=== PATIENT | female | born 1950 | race Caucasian/White ===

== ENCOUNTER → 2017-10-04 10:11 | Outpatient (REF) | payer OTHER, SELFPAY ==
--- NOTE | 2017-10-04 09:00 | PAPFT_PTH ---
PATIENT: Shereen Medley LOC: [facility] U#:[id number] AGE/SX: 74/F ROOM: RE10/04/[address]: DEBI Leal : 1950 BED: DIS: SPEC #: [id number] RECD: 10/04/17 12:46 STATUS: DOUGLAS JIMENEZ #: [id number] MARLENY: 10/04/17 09:[address]: Martha Mcintosh DEPT: [facility] Cytology RECD BY: aKrina Savage ENTERED: 10/04/17 12:46 SP TYPE: PAPFT OTHR DR: Balwinder Cruz Tissues: 1 - CX/ENDOCX FOR PAP SMEARS Procedures: PAP THIN PREP/[facility]VM Screening Comments: [id number]
== END ==
LOC: LBN 10:11
PROVIDERS: PCP Specialist/Technologist Athletic Trainer; Visit Provider Nurse Practitioner Family
DX: Z12.4 Encounter for screening for malignant neoplasm of cervix (principal)
CPT/HCPCS: 88142

== ENCOUNTER 2017-10-19 09:30 | Outpatient (RCR) | payer OTHER, SELFPAY ==
--- NOTE | 2017-10-05 15:28 | PTTR_ITS ---
DATE: 10/05/17 SUBJECTIVE: Shereen states that her hip is feeling much better. She went grocery shopping the other day and didn't experience any pain. She states that her daughter is coming up next week, and she's looking forward to being able to walk with her now that she's feeling better. She also plans to go shopping for sneakers when her daughter gets here. Compliant with HEP: x Yes No OBJECTIVE: Manual therapy: (33502r1): Patient received manual stretching to right HS, piriformis and single knee to chest stretching. She received DTM to the posterior hip musculature, with TrP release to the gluteals, and CFM to the gluteal tendons. Therapeutic procedures (65596m6). * x HEP review: * x Provided skilled instruction in proper exercise performance: Added pelvic tilts and mini squats, with consistent cues and tactile feedback. She was provided with handouts for home completion. * x Provided skilled manual cues to facilitate proper muscle recruitment and/ or movement pattern: Direct treatment time: 30 minutes Total treatment time: 30 minutes
--- NOTE | 2017-10-19 09:30 | PTDS_ITS ---
Date: October 19, 2017 Referring: SINGH [place] Diagnosis: Glut pain PT Dx: Gluteal tendinitis R Treatment dates 09/27/17 to 10/19/17 Subjective: History of Present Illness: Shereen states that her hip pain has almost entirely resolved. States she keeps waiting for the pain to return, although it doesn't seem to. She did have one day where she felt some stiffness in the back of her hip. She was able to do her exercises after which, her symptoms were completely resolved. She states she has been going for walks with her daughter and when out and purchased some more supportive shoes, which seems to be making a great deal of difference. She is now able to get out of bed without discomfort and stand for as long as she would like without onset of pain. Pain Ratin/10 Standardized Measures: LEFS which shows a 21% deficit. Objective: Posture: Standing-the patient continues to demonstrate posterior pelvic tilt. She is in supportive [employer] sneakers. Continues to demonstrate mild patella winking, although improved over previous visit. No trunk flexion is noted in static standing. Gait: Non-antalgic Palpation: Grossly non-tender throughout the LE's. ROM: Hip ROM is full and painfree. Trunk motion is full and painfree. Strength: Hip flexion is 5/5 bilaterally although with poor core stability with requirement of UE support. Quad strength is 5/5 bilaterally, hamstrings are 4+/5 bilaterally. IR is 5/5 bilaterally, ER 5/5 bilaterally. Ankle dorsiflexion 5/5 bilaterally. Glut med was assessed on the R only, found to be 4/5. Treatment: Today's session consisted of review of HEP. Progress pelvic tilts for 10 second hold for completion, otherwise patient demonstrates excellent technique throughout. Therapeutic Procedure [id number] Treatment Time: 20 mins Assessment: Patient is a 67 year old female who has been seen for 3 PT sessions to address gluteal tendinitis. She has experienced full resolution of symptoms and has now resumed all normal day to day activity. She is quite encouraged by her pain reduction and has been working on independently progressing a walking program. She also has demonstrated excellent compliance with her HEP, which I have strongly encouraged her to continue on fdc. She is transitioning to more supportive footwear, which I anticipate will make a great deal of difference for her in fdc as well. We have decided to defer orthotic insert as patient is managing so well in her new sneakers. At this point she is appropriate to discharge to [facility] as all rehab goals have been met. G-Codes: Patient demonstrates improvements in mobility: walking moving around with discharge status of [id number], based on projected goal status of GP-CI- G8979. Although patient demonstrated 21% deficit on LEFS, she has met all of her goals and complete resolution of symptoms. ST: Reduce frequency and severity of pain by 50% by self report (VAS less than 4 /10 at worse) MET. 2: Patient able to grocery shop without pain. (MET) LT: Fully independent self management program with intermediate card tender strengthening. (MET ) 2: Address biomechanical deficits with orthotic inserts (Deferred for time being due to well management symptoms in supportive sneakers.) 3: Patient able to complete work duties without pain pain. (MET) Plan: Discharge to home exercise program. Patient understands to contact me with any questions or concerns in the future. SS/dl *Balwinder, please sign this discharge summary and return to PT if you are in agreement. cc: Balwinder Cruz, PAC
== END 2017-11-02 23:59 | disposition home or self-care (01) ==
LOC: PT 09:30
PROVIDERS: PCP Specialist/Technologist Athletic Trainer; Referring Provider Specialist/Technologist Athletic Trainer; Visit Provider Specialist/Technologist Athletic Trainer
DX: M76.01 Gluteal tendinitis, right hip (principal)
CPT/HCPCS: 97110; 97140

== ENCOUNTER 2018-03-18 21:02 | Outpatient (REF) | payer OTHER, SELFPAY ==
[2018-03-18 22:52] LABS: Anion Gap 10.5 mmol/L (3-11); BUN 20 mg/dL (7-18); CO2 25.5 mmol/L (21.0-32.0); CREATININE 0.95 mg/dL (0.55-1.02); Calcium 10.4 mg/dL (8.5-10.1); Chloride 103 mmol/L (98-107); Cholesterol 171 mg/dL (50-200); Glucose 103 mg/dL (70-100); HDL Cholesterol 34 mg/dL (40-60); LDL CHOLESTEROL 110 mg/dL (<100); Potassium 4.8 mmol/L (3.5-5.1); Sodium 139 mmol/L (136-145); Triglyceride 225 mg/dL (30-150)
== END 2018-03-18 21:22 ==
LOC: NCHCN 21:02
PROVIDERS: PCP Specialist/Technologist Athletic Trainer; Visit Provider Specialist/Technologist Athletic Trainer
DX: E78.1 Pure hyperglyceridemia (principal); F17.200 Nicotine dependence, unspecified, uncomplicated; I10 Essential (primary) hypertension
CPT/HCPCS: 80048; 80061; 83721

== ENCOUNTER 2018-03-26 01:08 | Outpatient (CLI) | payer OTHER, SELFPAY ==
--- NOTE | 2018-03-26 08:48 | DI.MAMMO_ITS ---
SYMPTOMS/DIAGNOSIS: SCREENING, [facility] ADULT, Z00.00 MAMMOGRAMS: Mammograms were interpreted according to the usual protocol including computer analysis with CAD system, tomosynthesis and C view imaging. Comparison is with the prior examinations. There is again seen a large mole on the left breast. No suspicious masses or microcalcifications are seen. The skin and axillae are unremarkable. Asymmetric breast tissue at the upper inner quadrant of the right breast appears stable. IMPRESSION: No evidence for malignancy. Yearly mammography is recommended. Category 2, breast density A. MQSA ASSESSMENT OF FINDINGS: Negative with benign findings. Category 2. Patient will receive a letter notifying them of these results. BI-RAD category A. The breasts are almost entirely fatty.
== END 2018-03-26 01:28 ==
PROVIDERS: PCP Specialist/Technologist Athletic Trainer; Visit Provider Specialist/Technologist Athletic Trainer
DX: Z12.31 Encounter for screening mammogram for malignant neoplasm of breast (principal)
CPT/HCPCS: 77063; 77067

== ENCOUNTER → 2018-09-09 09:01 | Outpatient (BNVA) | payer OTHER, SELFPAY | PROVIDERS: PCP Specialist/Technologist Athletic Trainer; Visit Provider Urology | DX: N20.0 Calculus of kidney (principal) | CPT/HCPCS: 99213 ==

== ENCOUNTER 2018-09-12 14:11 | Outpatient (REF) | payer OTHER, SELFPAY ==
[2018-09-12 21:25] LABS: Anion Gap 13.6 mmol/L (3-11); BUN 20 mg/dL (7-18); CO2 23.4 mmol/L (21.0-32.0); CREATININE 0.88 mg/dL (0.55-1.02); Calcium 10.5 mg/dL (8.5-10.1); Chloride 101 mmol/L (98-107); Glucose 94 mg/dL (70-100); Potassium 4.6 mmol/L (3.5-5.1); Sodium 138 mmol/L (136-145)
== END 2018-09-12 14:31 ==
LOC: NCHCN 14:11
PROVIDERS: PCP Family Medicine; Visit Provider Specialist/Technologist Athletic Trainer
DX: I10 Essential (primary) hypertension (principal)
CPT/HCPCS: 80048

== ENCOUNTER 2018-09-23 00:39 | Outpatient (CLI) | payer OTHER, SELFPAY ==
--- NOTE | 2018-09-23 08:15 | DI.CTLCSR_ITS ---
SYMPTOM/DIAGNOSIS: TOBACCO SMOKER F17.20, CURRENT CT CHEST LUNG CANCER SCREENING. CT scan of the chest was performed according to the lung cancer screening protocol. Comparison examinations are 02/22/17 and 09/25/17. There is atherosclerosis of the thoracic aorta. No aneurysmal dilatation is present. Heart size is within normal limits. No significant pericardial effusion seen. Mild coronary artery calcification is present. No significant thoracic adenopathy, pleural effusion or pneumothorax is identified. The visualized thyroid gland is stable. Upper abdominal images show the patient is status post cholecystectomy. There is a nonobstructing 3 mm stone in the superior pole of the left kidney. The triangular shaped 6 mm pulmonary nodule associated with the superior aspect of the right major fissure and right minor fissure are stable. These likely reflect intrapulmonary lymph nodes. No noncalcified pulmonary nodules are seen. No infiltrates are present. The tracheobronchial tree is unremarkable. Degenerative flow and osteophytes are seen in the thoracic spine consistent with DISH. IMPRESSION: Stable pulmonary nodules, Category 2, annual screening with low dose CT in 12 months is recommended. Lung-RAD Category: Lung RADS Category 2- Benign Appearance/Behavior
== END 2018-09-23 00:59 ==
PROVIDERS: PCP Family Medicine; Visit Provider Specialist/Technologist Athletic Trainer
DX: Z12.2 Encounter for screening for malignant neoplasm of respiratory organs (principal); F17.200 Nicotine dependence, unspecified, uncomplicated; R91.8 Other nonspecific abnormal finding of lung field
CPT/HCPCS: G0297

== ENCOUNTER 2018-09-27 08:42 | Outpatient (CLI) | payer OTHER, SELFPAY ==
[2018-09-30 12:32] LABS: Parathyroid Hormone,Intact 40 pg/ml (19-88)
== END 2018-09-27 09:02 ==
PROVIDERS: PCP Family Medicine; Visit Provider Specialist/Technologist Athletic Trainer
DX: E83.52 Hypercalcemia (principal)
CPT/HCPCS: 36415; 82306; 83970; 84443

== ENCOUNTER 2019-02-27 10:15 | Outpatient (REF) | payer OTHER, SELFPAY ==
[2019-02-27 20:57] LABS: HCT 45.2 % (36.0-46.0); Mean Corp. HGB Concentration 33.2 g/dL (32.0-36.0); Mean Corpuscular Hemoglobin 31.3 pg (27.0-33.0); Mean Corpuscular Volume 94.4 fL (80-95); Mean Platelet Volume 10.7 fL (8.0-11.0); Platelet Count 309 x1000/uL (130-400); RBC 4.79 m/cumm (4.00-5.20); RBC Distribution Width 13.8 % (11.7-14.6)
[2019-02-27 21:07] LABS: ALT 22 U/L (14-59); AST 11 U/L (15-37); Albumin 3.8 g/dL (3.4-5.0); Alkaline Phosphatase 80 U/L (46-116); Anion Gap 11.5 mmol/L (3-11); BUN 19 mg/dL (7-18); Bilirubin, Total 0.4 mg/dL (0.2-1.0); CO2 24.5 mmol/L (21.0-32.0); CREATININE 1.02 mg/dL (0.55-1.02); Calcium 9.9 mg/dL (8.5-10.1); Chloride 104 mmol/L (98-107); Estimated GFR 53.89 (mL/min/1.73m2); Glucose 90 mg/dL (74-106); Magnesium 1.9 mg/dL (1.8-2.4); Potassium 4.6 mmol/L (3.5-5.1); Sodium 140 mmol/L (136-145); Total Protein 7.4 g/dL (6.4-8.2)
[2019-03-03 11:08] LABS: Hepatitis C Ab w Rflx HCV PCR Negative (Negative)
== END 2019-02-27 10:35 ==
LOC: NCHCN 10:15
PROVIDERS: PCP Family Medicine; Visit Provider Specialist/Technologist Athletic Trainer
DX: E83.52 Hypercalcemia (principal); R73.03 Prediabetes; I10 Essential (primary) hypertension; Z11.59 Encounter for screening for other viral diseases
CPT/HCPCS: 80053; 85027; 86803; 83735

== ENCOUNTER → 2019-09-09 08:11 | Outpatient (BNVA) | payer OTHER, SELFPAY | PROVIDERS: PCP Family Medicine; Referring Provider Family Medicine; Visit Provider Urology | DX: N20.0 Calculus of kidney (principal) | CPT/HCPCS: 99213 ==

== ENCOUNTER 2019-11-24 09:48 | Outpatient (REF) | payer OTHER, SELFPAY ==
[2019-11-24 19:48] LABS: HCT 46.2 % (36.0-46.0); HGB 14.7 g/dL (11.2-15.7); MCH 31.5 pg (27.0-33.0); MCHC 31.8 % (32.0-36.0); MCV 99.1 fL (80-95); MPV 10.8 fL (8.0-11.0); Platelet Count 287 10^3/uL (130-400); RBC 4.66 10^6/uL (3.93-5.22); RDW 13.4 % (11.7-14.6); RDW-SD 49.3 fL; WBC 8.26 10^3/uL (4.4-10.8)
[2019-11-24 19:54] LABS: Anion Gap 8.9 mmol/L (3-11); BUN 18 mg/dL (7-18); CO2 25.1 mmol/L (21.0-32.0); CREATININE 1.11 mg/dL (0.55-1.02); Calcium 9.9 mg/dL (8.5-10.1); Calculated LDL 76 mg/dL (<100); Chloride 108 mmol/L (98-107); Cholesterol 176 mg/dL (<200); Estimated GFR 48.74 (mL/min/1.73m2); Glucose 111 mg/dL (74-106); HDL Cholesterol 32 mg/dL (40-60); Potassium 4.4 mmol/L (3.5-5.1); Sodium 142 mmol/L (136-145); Triglyceride 343 mg/dL (<150)
[2019-11-24 20:45] LABS: Hemoglobin A1C 6.1 % (<5.7)
[2019-12-01 12:08] LABS: Campylobacter PCR Negative (Negative); Salmonella PCR Negative (Negative); Shiga Toxin PCR Negative (Negative); Shigella/Enteroinvasive Ecoli Negative (Negative)
== END 2019-11-24 10:08 ==
LOC: NCHCN 09:48
PROVIDERS: PCP Family Medicine; Visit Provider Nurse Practitioner Family
DX: R73.03 Prediabetes (principal); L98.9 Disorder of the skin and subcutaneous tissue, unspecified; E78.1 Pure hyperglyceridemia; I10 Essential (primary) hypertension; R19.7 Diarrhea, unspecified
CPT/HCPCS: 80048; 80061; 85027; 87329; 87505; 83036; 83630; 87177

== ENCOUNTER 2019-11-26 01:26 | Outpatient (CLI) | payer OTHER, SELFPAY ==
--- NOTE | 2019-11-26 | DI.CTLCSR_ITS ---
EXAM: CT CHEST LUNG CANCER SCREEN CLINICAL HISTORY: SCREENING FOR LUNG CA,CURRENT SMOKER,F17.200, LUNG NODULE, R91.8 TECHNIQUE: Imaging Protocol: Axial computed tomography images with coronal and sagittal reformatted images were created and reviewed COMPARISON: CT CT CHEST LUNG CANCER SCREEN from 09/23/2018 FINDINGS: Tracheobronchial tree: Patent where visualized. Mediastinum and Violeta: No dominant adenopathy or fluid collection. Pulmonary parenchyma: No consolidation or dominant measurable mass. No architectural distortion. Lung Nodules: The 2 triangular nodules associated with the superior aspect of the right major fissure and the right minor fissure are stable. There is again seen a calcified granuloma in the right lowe r lobe. No new pulmonary nodules are appreciated. Pleura: No effusion or pneumothorax. Heart: The heart is not dilated. Mild coronary artery calcification. No significant pericardial effus ion. Aorta: Thoracic aorta non-dilated.Atherosclerosis. Upper abdomen: Status post cholecystectomy. Bones: Degenerative changes. Soft Tissues: Unremarkable. IMPRESSION: Stable pulmonary nodules likely reflecting parenchymal lymph nodes. No new pulmonary nodules. Lung RADS Cat 2 - Benign Appearance / Behavior: Nodules with a very low likelihood of becoming a clin ically active cancer due to size or lack of growth Lung-RADS 1.0 CATEGORIES: Category 0 - Prior chest CT exam(s) being located for comparison. Category 1 - Annual screening in 12 months. No nodules or definitely benign nodules. Category 2 - Annual screening in 12 months. Benign appearance. Nodules with low likelihood of becomin g active cancer. Category 3 - 6-month follow-up. Probably benign. Short-term follow-up suggested. Nodules with low lik elihood of becoming active cancer. Category 4A - 3-month follow-up and CT/PET if >8 mm in size. Suspicious finding. Findings which requi re additional testing. Category 4B - Findings which require additional testing and tissue sampling. Suspicious finding. C Added to Any of the Above - History of prior lung cancer screening. S Added to Any of the Above - Significant unexpected other finding. RADIATION DOSE DELIVERED: 72.06mGy.cm Total DLP DATA REPOSITORY: All CT scans at this facility are submitted to the National Radiology Data Registry (NRDR) Dose Index Registry (DIR) with the [employer] (ACR). RADIATION OPTIMIZATION: All CT scans at this facility use at least one of these dose optimization te chniques: automated exposure control; mA and/or kV adjustment per patient size (includes targeted exa ms where dose is matched to clinical indication); or iterative reconstruction.
== END 2019-11-26 01:46 ==
PROVIDERS: PCP Family Medicine; Visit Provider Nurse Practitioner Family
DX: F17.210 Nicotine dependence, cigarettes, uncomplicated (principal); R91.8 Other nonspecific abnormal finding of lung field
CPT/HCPCS: G0297

== ENCOUNTER 2020-07-12 13:36 | Outpatient (REF) | payer OTHER, SELFPAY ==
[2020-07-12 15:39] LABS: Hemoglobin A1C 6.4 % (<5.7)
[2020-07-12 15:42] LABS: Anion Gap 11.4 mmol/L (3-11); BUN 20 mg/dL (7-18); CO2 23.6 mmol/L (21.0-32.0); CREATININE 1.1 mg/dL (0.55-1.02); Calcium 10.4 mg/dL (8.5-10.1); Chloride 105 mmol/L (98-107); Glucose 106 mg/dL (74-106); Potassium 5.2 mmol/L (3.5-5.1); Sodium 140 mmol/L (136-145)
== END 2020-07-12 13:37 | disposition home or self-care (01) ==
LOC: NCHCN 13:36
PROVIDERS: PCP Family Medicine; Visit Provider Nurse Practitioner Family
DX: R73.03 Prediabetes (principal); I10 Essential (primary) hypertension
CPT/HCPCS: 80048; 83036

== ENCOUNTER 2020-07-22 01:49 | Outpatient (CLI) | payer OTHER, SELFPAY ==
--- NOTE | 2020-07-22 08:28 | DI.RAD_ITS ---
Exam(s) XR HIP RT COMPLETE AP PELVIS EXAM: XR HIP RT COMPLETE AP PELVIS CLINICAL HISTORY: RT HIP PAIN, M25.551. TECHNIQUE: 2D digital imaging was performed. COMPARISON: No exams were available for comparison FINDINGS: There is no evidence of pelvic nor hip fracture. Additional views of the right hip reveal no joint s pace narrowing nor osteophytes. No osseous lesions in the hips and pelvic bones. IMPRESSION: DATA REPOSITORY: RADIATION DOSE DELIVERED:
== END 2020-07-22 02:09 ==
PROVIDERS: PCP Family Medicine; Visit Provider Nurse Practitioner Family
DX: M25.551 Pain in right hip (principal)
CPT/HCPCS: 73502

== ENCOUNTER 2020-08-25 00:54 | Outpatient (CLI) | payer OTHER, SELFPAY ==
--- NOTE | 2020-08-25 08:27 | DI.RAD_ITS ---
Exam(s) XR LUMBAR SPINE COMPLETE EXAM: XR LUMBAR SPINE COMPLETE CLINICAL HISTORY: RT HIP PAIN,M25.551. TECHNIQUE: 2D digital imaging was performed. COMPARISON: CR ABDOMEN FLAT PLATE from 09/07/2017 CR ABDOMEN FLAT PLATE from 09/07/2017 CR XR HIP RT COMPLETE AP PELVIS from 07/22/2020 FINDINGS: Five views of the lumbosacral spine reveal no evidence of compression fracture or listhesis nor pars defects. There is moderate disc space narrowing at each level and more prominent disc space narrowin g at L5-S1 level. Multilevel anterior osseous lipping is noted. Also multi level degenerative amor es in the facet joints. There is no scoliosis. No osseous lesions. Sacroiliac joints appear unchan ged from September 2017. Surgical clips from prior cholecystectomy incidentally noted. Vascular calcific ation in the distal abdominal aorta and iliac arteries noted. IMPRESSION: Multilevel chronic degenerative disc disease. Also multilevel facet arthropathy. DATA REPOSITORY: RADIATION DOSE DELIVERED:
--- NOTE | 2020-08-25 08:27 | DI.RAD_ITS ---
Exam(s) XR SACROILIAC JOINTS EXAM: XR SACROILIAC JOINTS CLINICAL HISTORY: RT HIP PAIN, AND SI PAIN,M25.551. TECHNIQUE: 2D digital imaging was performed. COMPARISON: CR ABDOMEN FLAT PLATE from 09/07/2017 CR ABDOMEN FLAT PLATE from 09/07/2017 FINDINGS: Sacroiliac joints appear age-appropriate. No obvious evidence of sacroiliitis or ankylosis. The tim earance of these joints is unchanged from abdominal pelvic plain film of September 07, 2017. Advanced disc space narrowing L5-S1 incidentally noted. Moderate disc space narrowing L4-5 noted. N o prominent narrowing of the visualized hip joint spaces. IMPRESSION: Age-appropriate sacroiliac joints. No evidence of obvious sacroiliitis. No ankylosis. Appearance is basically unchanged from September 2017. DATA REPOSITORY: RADIATION DOSE DELIVERED:
== END 2020-08-25 01:14 ==
PROVIDERS: PCP Family Medicine; Visit Provider Nurse Practitioner Family
DX: M16.11 Unilateral primary osteoarthritis, right hip; M53.3 Sacrococcygeal disorders, not elsewhere classified
CPT/HCPCS: 72110; 72202

== ENCOUNTER 2021-10-06 15:25 | Outpatient (REF) | payer MEDICARE, SELFPAY ==
[2021-10-06 15:49] LABS: Anion Gap 9.9 mmol/L (3-11); BUN 18 mg/dL (7-18); CO2 25.1 mmol/L (21.0-32.0); CREATININE 1.2 mg/dL (0.55-1.02); Calcium 9.8 mg/dL (8.5-10.1); Calculated LDL 61 mg/dL (<100); Chloride 106 mmol/L (98-107); Cholesterol 163 mg/dL (<200); Estimated GFR 44.29 (mL/min/1.73m2); Glucose 133 mg/dL (74-106); HDL Cholesterol 31 mg/dL (40-60); Potassium 4.7 mmol/L (3.5-5.1); Sodium 141 mmol/L (136-145); Triglyceride 357 mg/dL (<150)
[2021-10-06 16:04] LABS: Hemoglobin A1C 6.6 % (<5.7)
== END 2021-10-06 15:26 | disposition home or self-care (01) ==
LOC: NCHCN 15:25
PROVIDERS: PCP Family Medicine; Visit Provider Nurse Practitioner Family
DX: I10 Essential (primary) hypertension (principal); R73.03 Prediabetes
CPT/HCPCS: 80048; 80061; 83036

== ENCOUNTER → 2021-10-28 00:26 | Outpatient (CLI) | payer MEDICARE, SELFPAY ==
--- NOTE | 2021-10-28 | DI.DEXA_ITS ---
Exam(s) XR DEXA BONE DENSITY W/WO JUN EXAM: XR DEXA BONE DENSITY W/WO JUN CLINICAL HISTORY: SCREENING FOR OSTEOPOROSIS IN POSTMENOPAUSAL WOMAN,Z78.0 TECHNIQUE: Routine DEXA evaluation of the lumbar spine, hip, or forearm. COMPARISON: CR XR LUMBAR SPINE COMPLETE from 08/25/2020 FINDINGS: Performed on a Hologic unit. Lateral image: No compression fracture evident. Lumbar Spine total T-score: 3.5 Hip total T-score:2.2 Independent reading at the level of the femoral neck yields at T-score of 1.9. Forearm total T-score: 1.1 IMPRESSION: Bone mineral density measures in the normal range. Fracture risk is low. Note: Any spine fracture indicates 5x risk for subsequent spine fracture and 2x risk for subsequent h ip fracture. World Health Organization criteria for BMD interpretation classify patients: Normal...... T- Score at or above -1.0 Osteopenic... T- Score between -1.0 and -2.5 Osteoporosis... T-Score at or below -2.5
--- NOTE | 2021-10-28 | DI.MAMMO_ITS ---
Exam(s) MAMMO SCREENING EXAM: MAMMO SCREENING CLINICAL HISTORY: SCREENING, Z12.31. TECHNIQUE: Bilateral full field digital CC and MLO mammographic images were obtained with 3D tomosyn thesis and utilizing computer aided detection (CAD). COMPARISON: Prior mammograms were reviewed, the most recent being March 2018. FINDINGS: Fibroglandular tissue pattern is again noted fatty. Prominent skin mole on the left side is again no dell. Small microcalcification in the left breast located 5 cm in from the nipple on the CC view is unchang ed. There are no new spiculated masses nor malignant appearing microcalcification groups. Small nodular density in the right breast located 6 cm in from the nipple on the CC view is unchanged from prior studies. There is no significant architectural distortion nor skin thickening-retraction. IMPRESSION: No radiographic evidence of malignancy. Stable benign-appearing findings. BI-RADS Category 2 - Benign Findings Breast Density - Category A - Almost entirely fatty Breast density Category C or D implies that the patient has dense breast tissue. Dense breast tissue can make it harder to find cancer on a mammogram. Dense breast tissue is also associated with an incr eased risk of breast cancer. This information about the result of the mammogram report was provided to the patient to raise their awareness. Use this report when you speak with the patient about their risks for breast cancer, which includes their family history. At that time, you may recommend additional screening tests (Ultrasoun d or MRI) as these tests may add significant information. A negative radiographic report should not delay biopsy if a dominant or clinically suspicious mass is present. Up to ten percent of cancers are not identified on mammography. A negative report may reinforce clinical impression. Adenosis and dense breasts may obscure an underlying neoplasm. False positive reports average 6 to 10%. Patient will receive a letter notifying them of these results.
--- OUTSIDE RECORDS SUMMARY | 2021-10-28 00:27 | XMS_ITS | Encounter Summary ---
:1950 Author Organization [facility] Address [address] [place] [address] Care Team Providers Name Role Phone Unavailable Primary Care Provider Unavailable Encounter Details Date Type Department Care Team Description 09/03/2007 [facility] Hsu MD Converted Visit [place] conversion [address] ([place]) [address] [facility] [place] [phone] Social History Tobacco Use Types Packs/Day Years Used Date Never Assessed Sex Assigned at Date Recorded Not on file documented as of this encounter Plan of Treatment Not on filedocumented as of this encounter Procedures Procedure Name Priority Date/Time Associated Diagnosis Comme nts CYTOPATHOLOGY Routine 09/03/2007 0:00 EDT Results for this procedure are i n the results section . documented in this encounter Results CYTOPATHOLOGY (09/03/2007 0:00 EDT) Pathology Report: CYTOPATHOLOGY REPORT ? [facility] ? LAB Reports generated via Morphy interface contain original data; ? however they are lacking the format of the original report. ? Caution should be taken when reading/interpreting unformatted reports. ? Name: ? PAKO TEE ? Accession #: ? [id number] ? : ? 1950 (Age: 57) ??F ?Collect Date: ? 09/03/2007 ? Location: ? [facility] ? Receive Date: ? 09/03/2007 ? Provider: ?ARPIT WINTERSU L MD ? Copy to: ? Specimen/Source: ? ThinPrep Pap Test, Cervix/Endocervix, processed on Cytyc ThinPrep Imaging System, wit h manual evaluation ? Last Menstrual Period: ? 05/01/06 ? SPECIMEN ADEQUACY ? Satisfactory for Eval uation ? - transformation zone compon ent present ? GENERAL CATEGORIZATION ? Negative for Intraepi thelial Lesion or Malignancy ? Document reviewed and electr onically signed by: ? Raj Paul, CT( CP) ? Report Date: ??07/09/ 2008 11:13 ? End of Report ? Specimen Performing Organization Address City/State/ZIP Code Phon e Number [facility] [address] [place] [address] SERVICES [facility] [address] [place] [address] documented in this encounter Visit Diagnoses Not on filedocumented in this encounter
--- OUTSIDE RECORDS SUMMARY | 2021-10-28 00:27 | XMS_ITS | Encounter Summary ---
:1950 Author Organization [facility] Address [address] [place] [address] Care Team Providers Name Role Phone Unknown, Provider Primary Care Provider Encounter Details Date Type Department Care Team Description 02/02/2003 Results Only [facility] - Dennis Clarke MD conversion [address] [place] [phone] Social History Tobacco Use Types Packs/Day Years Used Date Never Assessed Sex Assigned at Date Recorded Not on file documented as of this encounter Plan of Treatment Not on filedocumented as of this encounter Procedures Procedure Name Priority Date/Time Associated Diagnosis Comme nts SURGICAL PATHOLOGY Routine 02/02/2003 0:00 EST Re sults for this procedure are i n the results section. documented in this encounter Results SURGICAL PATHOLOGY (02/02/2003 0:00 EST) Pathology Report: SURGICAL PATHOLOGY REPORT [facility] Reports generated via electronic interface contain luis a ginal data; LAB however they are lacking the format of the original re port. Caution should be taken when reading/interpreting unfo rmatted reports. Name: ? PAKO TEE ? Accession #: ? [id number] ? : ? 1950 (Age: 52) ??F ? Collect Date: ? 02/02/2003 ? Location: ? [facility] ? Receive Date: ? 003 ? Provider: DENNIS VILLARREAL MD Copy to: SHAHRAM CHOI MD ? Final Pathologic Diagnosis: ? Endometrium, curettage: 1. ?Fragments of proliferat michael endometrium with tubal metaplasia. 2. ?Fragments of endocervical tissue with squamous metaplasia. 3. ?No hyperplasia identified. ??See comm ent. Comment: ? Outside Sales Executive sections have been reviewed at i ntradepartmental consultation conference. ??(Dr. Whaley)/[facility] Document reviewed and electronically signed by: POOL WHALEY MD Report ??Date: 02/04/2003 15:48 By the signature above, the attending physician certif ies that he/she has personally conducted a gross and/or microscopic examin ation of the described specimens and rendered or confirmed the above diagnosi s. Specimen(s) Received: ? Endometrial curettage Clinical History: ? Menometrorrhagia, cycled on progesterone Gross Description: ? Received in formalin labeled Call and endometrial curettage are 1.0 x 0.6 x 0.3 cm of multiple red-brown hemorrhagic soft ti ssue fragments. ??The specimen is entirely submitted in one cassette. ??(Payton Hernandez)/[facility] End of Report Specimen Performing Organization Address City/State/ZIP Code Phon e Number [facility] [address] [place] [address] SERVICES [facility] [address] [place] [address] documented in this encounter Visit Diagnoses Not on filedocumented in this encounter Care Teams Sandstone Inspector Repairer Relationship Specialty Start Date End Date Unknown, Provider, PCP - General 09/09/09 09/23/09 documented as of this encounter
--- OUTSIDE RECORDS SUMMARY | 2021-10-28 00:27 | XMS_ITS | Encounter Summary ---
:1950 Author Organization [facility] Address [address] [place] [address] Care Team Providers Name Role Phone Unavailable Primary Care Provider Unavailable Encounter Details Date Type Department Care Team Description 07/15/2002 Results Only [facility] - Mignon Pyle NP conversion [facility] [address] [place] [address] [place], [place] [id number] [phone] Social History Tobacco Use Types Packs/Day Years Used Date Never Assessed Sex Assigned at Date Recorded Not on file documented as of this encounter Plan of Treatment Not on filedocumented as of this encounter Procedures Procedure Name Priority Date/Time Associated Diagnosis Comme nts CYTOPATHOLOGY Routine 07/15/2002 0:00 EDT Results for this procedure are i n the results section . documented in this encounter Results CYTOPATHOLOGY (07/15/2002 0:00 EDT) Pathology Report: CYTOPATHOLOGY REPORT [facility] Reports generated via electronic interface contain luis a ginal data; however they are lacking the format of the original re port. Caution should be taken when reading/interpreting unfo rmatted reports. Name: ? SHEREEN TEE ? Accession #: ? [id number] : ? 1950 (Age: 52) ??F ?Collect Date: ? 05/1 05/2002 Location: ? [facility] ? Receive Date : ? 07/17/2002 Provider: ?MIGNON WRIGHT TAX RECORD CLERK Copy to: ? Specimen/Source: ?ThinPrep Pap Test, Cervix/ Endocervix Last Menstrual Period: ? 06/13/02 Hormonal/Contraceptive Status: ? Yes ? SPECIMEN ADEQUACY ? Satisfactory for Evaluation - transformation zone component present - scant squamous epithelial component secondary to exc essive blood GENERAL CATEGORIZATION ? Other, see interpretation INTERPRETATION ? Endometrial cells present in a woman equal to o r greater than age 40. Negative for Intraepithelial Lesion or Malignancy. ? COMMENT ? Benign appearing endometrial cells on Pap tests are usually a normal finding in women with regular menstrual cycles, especi ally if the Pap was collected during the first h césar of the menstrual cycle. ??There is data showing that endometrial cells on Pap tests may be associated with endometrial/uterine abnormalities in post menopausal women o r in premenopausal women with abnormal bleeding. ??There is limited data on the significance of benign endometrial cells in post menopausal women on HRT. ??Clinical correlatio n is recommended. Note: ?? The Pap test is not an accurate test for the screening of endometrial lesions and should not be used as a follow up in patie nts with clinical suspicion of endometrial pathology. ? Document reviewed and electronically signed by: ? ZAKIYA TEMPLETON MD ? Report Date: ??07/25/2002 15:43 End of Report Specimen Performing Organization Address City/State/ZIP Code Phon e Number [facility] [address] [place] [address] SERVICES [facility] [address] [place] [address] documented in this encounter Visit Diagnoses Not on filedocumented in this encounter
--- OUTSIDE RECORDS SUMMARY | 2021-10-28 00:27 | XMS_ITS | Encounter Summary ---
:1950 Author Organization [facility] Address [address] [place] [address] Care Team Providers Name Role Phone Safia Leal MD Primary Care Provider Encounter Details Date Type Department Care Team Description 02/28/2019 Lab Requisition [facility] Unknown, Provider, Pathology & Laboratory [facility] [address] [facility] [place], [place] [address] Social History Tobacco Use Types Packs/Day Years Used Date Never Assessed Sex Assigned at Date Recorded Not on file documented as of this encounter Plan of Treatment Not on filedocumented as of this encounter Procedures Procedure Name Priority Date/Time Associated Diagnosis Comme nts HEPATITIS C AB W Routine 02/27/2019 9:55 EST Resu lts for this REFLEX TO HCV RNA procedure are in BY PCR the results section. documented in this encounter Results HEPATITIS C AB W REFLEX TO HCV RNA BY PCR (02/27/2019 9:55 EST) Pathologist Sig nature Hep C Antibody Negative Negative [facility] Specimen Blood - Venous blood (substance) Performing Organization Address City/State/ZIP Code Phon e Number [facility] [address] [place] [address] SERVICES documented in this encounter Visit Diagnoses Not on filedocumented in this encounter Care Teams Journeyman Patternmaker Relationship Specialty Start Date End Date Safia Leal MD PCP - General 09/24/09 [address] [place], [place] [id number] documented as of this encounter
--- OUTSIDE RECORDS SUMMARY | 2021-10-28 00:27 | XMS_ITS | Encounter Summary ---
:1950 Author Organization [facility] Address [address] [place] [address] Care Team Providers Name Role Phone Unavailable Primary Care Provider Unavailable Encounter Details Date Type Department Care Team Description 09/07/2008 Orders Only [facility] Barney Mcintosh, ELECTRIC FAN ASSEMBLER Laboratory Services - [address] [place], [place] [address] [facility] [address] [place] [address] [phone] Social History Tobacco Use Types Packs/Day Years Used Date Never Assessed Sex Assigned at Date Recorded Not on file documented as of this encounter Plan of Treatment Not on filedocumented as of this encounter Procedures Procedure Name Priority Date/Time Associated Diagnosis Comme nts CYTOPATHOLOGY Routine 09/07/2008 0:00 EDT Results for this procedure are i n the results section . documented in this encounter Results CYTOPATHOLOGY (09/07/2008 0:00 EDT) Pathology Report: CYTOPATHOLOGY REPORT ? [facility] ? LAB Reports generated via [employer] interface contain original data; ? however they are lacking the format of the original report. ? Caution should be taken when reading/interpreting unformatted reports. ? Name: ? CALL, PAKO ? Accession #: ? [id number] ? : ? 1950 (Age: 58) ??F ?Collect Date: ? 09/07/2008 ? Location: ? [facility] ? Receive Date: ? 09/07/2008 ? Provider: ?MAURICIO GERMAN OOD ELECTRIC FAN ASSEMBLER ? Copy to: ? Specimen/Source: ? Pap Test, Cervix/Endocervix, ThinPrep Imaging System ? with manual evaluation ? Last Menstrual Period: ? 05/01/06 ? Other: ? HPVA - HPV testing requested if ASC-US on the current ThinPrep Pap test. ? SPECIMEN ADEQUACY ? Satisfactory for Eval uation ? - transformation zone compon ent present ? GENERAL CATEGORIZATION ? Negative for Intraepi thelial Lesion or Malignancy ? Document reviewed and electr onically signed by: ? Raj Shireenler, CT( CP) ? Report Date: ??07/10/ 2009 16:03 ? End of Report ? Specimen Performing Organization Address City/State/[facility] Code Phon e Number [facility] [address] [place] [address] SERVICES [facility] [address] [place] [address] documented in this encounter Visit Diagnoses Not on filedocumented in this encounter
--- OUTSIDE RECORDS SUMMARY | 2021-10-28 00:27 | XMS_ITS | Encounter Summary ---
:1950 Author Organization [facility] Address [address] [place] [address] Care Team Providers Name Role Phone Safia Leal MD Primary Care Provider Unknown, Provider Primary Care Provider Encounter Details Date Type Department Care Team Description 08/22/2004 Results Only [facility] - Dennis Clarke MD conversion [address] [place] [address] Social History Tobacco Use Types Packs/Day Years Used Date Never Assessed Sex Assigned at Date Recorded Not on file documented as of this encounter Plan of Treatment Not on filedocumented as of this encounter Procedures Procedure Name Priority Date/Time Associated Diagnosis Comme nts CYTOPATHOLOGY Routine 08/22/2004 0:00 EDT Results for this procedure are i n the results section . documented in this encounter Results CYTOPATHOLOGY (08/22/2004 0:00 EDT) Pathology Report: CYTOPATHOLOGY REPORT [facility] Reports generated via electronic interface contain luis a ginal data; however they are lacking the format of the original re port. Caution should be taken when reading/interpreting unfo rmatted reports. Name: ? PAKO TEE ? Accession #: ? [id number] : ? 1950 (Age: 54) ??F ?Collect Date: ? 08/04 Location: ? [facility] ? Receive Date : ? 08/24/2004 Provider: ?DENNIS VILLARREAL MD Copy to: ? Specimen/Source: ?ThinPrep Pap Test, Cervix/ Endocervix Last Menstrual Period: ? 07/09/04 Hormonal/Contraceptive Status: ? Progesterone Other: ? HPVA - HPV testing requested if ASC-US on the current ThinPrep Pap test. ? SPECIMEN ADEQUACY ? Satisfactory for Evaluation - transformation zone component present GENERAL CATEGORIZATION ? Negative for Intraepithelial Lesion or Malignan cy ? Document reviewed and electronically signed by: ? Mignon Castaneda, [facility](ASCP) ? Report Date: ??08/30/2004 10:14 End of Report Specimen Performing Organization Address City/State/ZIP Code Phon e Number [facility] [address] [place] [address] SERVICES [facility] [address] [place] [address] documented in this encounter Visit Diagnoses Not on filedocumented in this encounter Care Teams Assistant Center Director Relationship Specialty Start Date End Date Safia Leal MD PCP - General 09/24/09 [address] [place] [address] Ama, MD Barbie PCP - General 09/09/09 09/23/09 documented as of this encounter
--- OUTSIDE RECORDS SUMMARY | 2021-10-28 00:27 | XMS_ITS | Encounter Summary ---
:[address] [facility] Address [address] [place] [address] Care Team Providers Name Role Phone Unavailable Primary Care Provider Unavailable Encounter Details Date Type Department Care Team Description 07/12/2001 Results Only [facility] - Safia Veronica MD conversion [address] [facility] [address] [place] [address] [place] [address] [phone] Social History Tobacco Use Types Packs/Day Years Used Date Never Assessed Sex Assigned at Date Recorded Not on file documented as of this encounter Plan of Treatment Not on filedocumented as of this encounter Procedures Procedure Name Priority Date/Time Associated Diagnosis Comme nts CYTOPATHOLOGY Routine 07/12/2001 0:00 EDT Results for this procedure are i n the results section . documented in this encounter Results CYTOPATHOLOGY (07/12/2001 0:00 EDT) Pathology Report: CYTOPATHOLOGY REPORT [facility] Reports generated via electronic interface contain luis a ginal data; however they are lacking the format of the original re port. Caution should be taken when reading/interpreting unfo rmatted reports. Name: ? PAKO TEE ? Accession #: ? [id number] : ? 1950 (Age: 51) ??F ?Collect Date: ? 07/03 Location: ? [facility] ? Receive Date : ? 07/17/2001 Provider: ?SAFIA CHOI MD Copy to: ? Specimen/Source: ?ThinPrep Pap Test, Cervix/ Endocervix Last Menstrual Period: ? 06/16/01 Hormonal/Contraceptive Status: ? Progesterone ? SPECIMEN ADEQUACY ? Satisfactory for Evaluation - transformation zone component present GENERAL CATEGORIZATION ? Negative for Intraepithelial Lesion or Malignan cy ? Document reviewed and electronically signed by: ? Mignon Castaneda, SCT(ASCP) ? Report Date: ??07/19/2001 16:16 End of Report Specimen Performing Organization Address City/State/ZIP Code Phon e Number [facility] [address] [place] [address] SERVICES [facility] [address] [place] [phone] documented in this encounter Visit Diagnoses Not on filedocumented in this encounter
--- OUTSIDE RECORDS SUMMARY | 2021-10-28 00:27 | XMS_ITS | Encounter Summary ---
:1950 Author Organization [facility] Address [address] [place] [address] Care Team Providers Name Role Phone Safia Leal MD Primary Care Provider Encounter Details Date Type Department Care Team Description 09/10/2012 Results Only [facility] Barney Mcintosh, [facility] Laboratory Services - [address] [place], [place] [address] [facility] [address] [place] [address] [phone] Social History Tobacco Use Types Packs/Day Years Used Date Never Assessed Sex Assigned at Date Recorded Not on file documented as of this encounter Plan of Treatment Not on filedocumented as of this encounter Procedures Procedure Name Priority Date/Time Associated Diagnosis Comme nts PAP TEST- RESULT Routine 09/10/2012 0:00 EDT Resu lts for this ONLY procedure are i n the results section. documented in this encounter Results PAP TEST- RESULT ONLY (09/10/2012 0:00 EDT) Pathology Report: CYTOPATHOLOGY REPORT [facility] Reports generated via electronic interface contain luis a ginal data; however they are lacking the format of the original re port. Caution should be taken when reading/interpreting unfo rmatted reports. Name: ? PAKO TEE ? Accession #: ? [id number] ? : ? 1950 (Age: 62) ??F ?Collect Da te: ? 09/10/2012 ? Location: ? [facility] ? Receive Date: ? 013 ? Provider: MAURICIO MCINTOSH WILDLIFE CONSERVATION PROFESSOR Copy to: SAFIA LEAL MD ? Final Report SPECIMEN ADEQUACY ? Satisfactory for Evaluation - transformation zone component present GENERAL CATEGORIZATION ? Negative for Intraepithelial Lesion or Malignan cy ?? Last Menstrual Period: 2005 Other: Additional clinical information: last pap 0, negative with -HPV Specimen/Source: ??Pap Test, Cervix/Endocervix, ThinPr ep Imaging System with manual evaluation Document reviewed and electronically signed by: ? RAMESH Sapp(ASCP) ? Report ??Date: 09/16/2012 13:57 HPV with Pap Test ? Date Ordered: ? 09/16/2012 ? Status: ?? Signed Out ?Date Complete: ? 09/18/2012 ? By: ??S ystem Interface ? Date Reported: ? 09/18/2012 ? Interpretation RESULT: Negative for HPV. No E6 or E7 mRNA is detected from HPV types 16,18,31,3 3,35, 39,45,51,52,56,58,59,66, and 68 by admissions officer media dell amplification. Comments Document reviewed and electronically signed by: ? System Interface ? Report date: 09/18/2012 By the signature above, the attending physician certif ies that he/she has personally conducted a gross and/or microscopic examin ation of the described specimens and rendered or confirmed the above diagnosi s. End of Report Specimen Performing Organization Address City/State/ZIP Code Phon e Number [facility] [address] [place] [address] SERVICES [facility] [address] [place] [address] documented in this encounter Visit Diagnoses Not on filedocumented in this encounter Care Teams Lining Presser Relationship Specialty Start Date End Date Safia Leal MD PCP - General 09/24/09 [address] [place] [address] documented as of this encounter
--- OUTSIDE RECORDS SUMMARY | 2021-10-28 00:27 | XMS_ITS | Encounter Summary ---
:1950 Author Organization [facility] Address [address] [place] [address] Care Team Providers Name Role Phone Safia Leal MD Primary Care Provider Unknown, Provider Primary Care Provider Encounter Details Date Type Department Care Team Description 03/22/2006 Results Only [facility] - John Francisco, DO conversion [address] [facility] [address] [place], [place] [address] [place] [id number] [phone] Social History Tobacco Use Types Packs/Day Years Used Date Never Assessed Sex Assigned at Date Recorded Not on file documented as of this encounter Plan of Treatment Not on filedocumented as of this encounter Procedures Procedure Name Priority Date/Time Associated Diagnosis Comme nts SURGICAL PATHOLOGY Routine 03/22/2006 0:00 EST Re sults for this procedure are i n the results section. documented in this encounter Results SURGICAL PATHOLOGY (03/22/2006 0:00 EST) Pathology Report: SURGICAL PATHOLOGY REPORT [facility] Reports generated via electronic interface contain luis a ginal data; LAB however they are lacking the format of the original re port. Caution should be taken when reading/interpreting unfo rmatted reports. Name: ? PAKO TEE ? Accession #: ? [id number] ? : ? 1950 (Age: 56) ??F ? Collect Date: ? 03/22/2006 ? Location: ? [facility] ? Receive Date: ? 03/22/19 07 ? Provider: JOHN KOTHARI DO Copy to: ? Final Pathologic Diagnosis: A. ?Duodenum, 2nd portion, biopsy: 1. ?Duodenal mucosa with no specific hist opathologic diagnosis. B. ?Stomach, antrum, biopsy: 1. ?Gastric antral-type mucosa with no sp ecific histopathologic diagnosis. 2. ? Aric stain negative for Helicobacter pylor i-like microorganisms. C. ?Stomach, greater curve, biopsy: 1. ?Gastric oxyntic mucosa with mild foveolar reactive change and capillary congestion. 2. ? Aric stain negative for Helicobacter pylor i-like microorganisms. D. ?Colon, ascending, polyp, biopsy: 1. ?Tubular adenoma (1 piece); no high gr mary jo dysplasia. Comment: ? This case was reviewe d at intradepartmental consultation conference. ??(Dr. Greene)/[facility] Document reviewed and electronically signed by: Juventino Greene MD Report ??Date: 03/27/2006 12:02 By the signature above, the attending physician certif ies that he/she has personally conducted a gross and/or microscopic examin ation of the described specimens and rendered or confirmed the above diagnosi s. Specimen(s) Received: A. ?2nd portion duodenum/cold B. ? Antrum/cold C. ? Greater curve/cold D. ? 4 mm ascending colon polyp/hot Clinical History: ? 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 ??A. R/O Sprue, B. R/O Helicob acter Gross Description: ? Received in Hollande's fixative labelled Call and 2nd portion duodenum/cold is an irregular 0.2 x 0.2 x 0.1 cm port ion of lopez-pink soft tissue. ??The specimen is submitted intact as (A). Received in Hollande's fixative labelled Call and a ntrum/cold is an irregular 0.5 x 0.4 x 0.2 cm portion of lopez-pink soft tissue. ??The specimen is submitted intact as (B). Received in [place]'s fixat michael labelled Call and greater curve/cold are two irregular portions of lopez-pink soft tiss ue measuring 0.2 x 0.2 x less than 0.1 cm and 0.3 x 0.1 x less than 0.1 cm. ??The specimen is submitted in toto as (C). Received in Hollande's fixative labelled Call and 4 mm ascending colon polyp/hot is a 0.3 x 0.1 x 0.1 cm, lopez- pink, polypoid portion of soft tissue. The specimen is submitted intact as (D). ??(Napoleon méndez)/lgk End of Report Specimen Performing Organization Address City/State/ZIP Code Phon e Number [facility] [address] [place] [address] SERVICES [facility] [address] [place] [address] documented in this encounter Visit Diagnoses Not on filedocumented in this encounter Care Teams Brand Recorder Relationship Specialty Start Date End Date Safia Leal MD PCP - General 09/24/[address] [place] [phone] Unknown, MD Barbie PCP - General 09/09/09 09/23/09 documented as of this encounter
--- OUTSIDE RECORDS SUMMARY | 2021-10-28 00:27 | XMS_ITS | Encounter Summary ---
:1950 Author Organization [facility] Address [address] [place] [address] Care Team Providers Name Role Phone Safia Leal MD Primary Care Provider Unknown, Provider Primary Care Provider Encounter Details Date Type Department Care Team Description 08/17/2003 Results Only [facility] - Dennis Clarke MD conversion [address] [place] [address] Social History Tobacco Use Types Packs/Day Years Used Date Never Assessed Sex Assigned at Date Recorded Not on file documented as of this encounter Plan of Treatment Not on filedocumented as of this encounter Procedures Procedure Name Priority Date/Time Associated Diagnosis Comme nts CYTOPATHOLOGY Routine 08/17/2003 0:00 EDT Results for this procedure are i n the results section . documented in this encounter Results CYTOPATHOLOGY (08/17/2003 0:00 EDT) Pathology Report: CYTOPATHOLOGY REPORT [facility] Reports generated via electronic interface contain luis a ginal data; however they are lacking the format of the original re port. Caution should be taken when reading/interpreting unfo rmatted reports. Name: ? PAKO TEE ? Accession #: ? [id number] : ? 1950 (Age: 53) ??F ?Collect Date: ? 08/03 Location: ? [facility] ? Receive Date : ? 08/18/2003 Provider: ?DENNIS VILLARREAL MD Copy to: ? Specimen/Source: ?ThinPrep Pap Test, Cervix/ Endocervix Last Menstrual Period: ? Unsure ? SPECIMEN ADEQUACY ? Satisfactory for Evaluation - transformation zone component present GENERAL CATEGORIZATION ? Negative for Intraepithelial Lesion or Malignan cy ? Document reviewed and electronically signed by: ? RAMESH Whalen(ASCP) ? Report Date: ??08/20/2003 13:03 End of Report Specimen Performing Organization Address City/State/ZIP Code Phon e Number [facility] [address] [place] [address] SERVICES [facility] [address] [place] [address] documented in this encounter Visit Diagnoses Not on filedocumented in this encounter Care Teams Multifocal Lens Assembler Relationship Specialty Start Date End Date Safia Leal MD PCP - General 09/24/[address] [place] [id number] Unknown, MD Barbie PCP - General 09/09/09 09/23/09 documented as of this encounter
--- OUTSIDE RECORDS SUMMARY | 2021-10-28 00:27 | XMS_ITS | Encounter Summary ---
:1950 Author Organization [facility] Address [address] [place] [address] Care Team Providers Name Role Phone Safia Leal MD Primary Care Provider Encounter Details Date Type Department Care Team Description 11/24/2019 Lab Requisition [facility] Outr Resulting Lab, Pathology & Laboratory Provider [facility] [address] [place] [address] Social History Tobacco Use Types Packs/Day Years Used Date Never Assessed Sex Assigned at Date Recorded Not on file documented as of this encounter Plan of Treatment Not on filedocumented as of this encounter Procedures Procedure Name Priority Date/Time Associated Comments Diagnosis GIARDIA AND Routine 11/24/2019 12:30 Results for this CRYPTOSPORIDIUM ANTIGENS EDT pro cedure are in the results section. OVA/PARASITE EXAM Routine 11/24/2019 12:30 Result s for this EDT procedure are i n the results section. documented in this encounter Results GIARDIA AND CRYPTOSPORIDIUM ANTIGENS (11/24/2019 12:30 EDT) Giardia and Cryptosporidium Cryptosporidium [facility] Cryptosporidium Antigen Neg and Antigen Neg and CENTER Giardia Antigen Neg Giardia Antigen Neg LABORATORY SERVICES Specimen Feces - Specimen from rectum (specimen) Performing Organization Address City/State/ZIP Code Phon e Number [facility] [address] [place] [address] SERVICES OVA/PARASITE EXAM (11/24/2019 12:30 EDT) Pathologist Sig nature Parasite No ova and parasites [facility] seen. LABORATORY SERVICES Specimen Feces - Specimen from rectum (specimen) Narrative [facility] - 11/26/2019 14:17 EDT (If Cryptosporidium, Cyclospora, or Micr osporidium are suspected, specific tests must be requested.) Single negative specimen does not rule out the possibility of a parasitic infection. Performing Organization Address City/State/ZIP Code Phon e Number [facility] [address] [place] [address] SERVICES documented in this encounter Visit Diagnoses Not on filedocumented in this encounter Care Teams Piping Drafter Relationship Specialty Start Date End Date Safia Leal MD PCP - General 09/24/[address] [place] [phone] documented as of this encounter
--- OUTSIDE RECORDS SUMMARY | 2021-10-28 00:27 | XMS_ITS | Encounter Summary ---
:1950 Author Organization [facility] Address [address] [place] [address] Care Team Providers Name Role Phone Safia Leal MD Primary Care Provider Encounter Details Date Type Department Care Team Description 10/04/2017 Results Only [facility]- Martha Major, [facility] [phone] [facility] [facility] [place] [address] (Wo rk) Social History Tobacco Use Types Packs/Day Years Used Date Never Assessed Sex Assigned at Date Recorded Not on file documented as of this encounter Plan of Treatment Not on filedocumented as of this encounter Procedures Procedure Name Priority Date/Time Associated Diagnosis Comme nts PAP TEST- RESULT Routine 10/04/2017 0:00 EDT Resu lts for this ONLY procedure are i n the results section. documented in this encounter Results PAP TEST- RESULT ONLY (10/04/2017 0:00 EDT) Pathology Report: CYTOPATHOLOGY REPORT [facility] Reports generated via electronic interface contain luis a ginal data; SERVICES however they are lacking the format of the original re port. Caution should be taken when reading/interpreting unfo rmatted reports. Name: ? PAKO TEE ? Accession #: ? [id number] : ? 1950 (Age: 67) ??F ?Collect Date: ? 2017 Location: ? [facility] ? Receive Date : ? 10/05/2017 Provider: ?MARTHA NERI BANQUET STEWARDESS Copy to: ?HELGA BOOGIE PAC ? Specimen/Source: ? Pap Test, Cervix, ThinPrep Imaging System with manual evaluation Last Menstrual Period: ? 2006 ? SPECIMEN ADEQUACY ? Satisfactory for Evaluation - transformation zone component present GENERAL CATEGORIZATION ? Negative for Intraepithelial Lesion or Malignan cy ? Document reviewed and electronically signed by: ? RAMESH Whalen(ASCP) ? Report Date: ??10/18/2017 08:48 End of Report Specimen Performing Organization Address City/State/ZIP Code Phon e Number [facility] [address] [place] [address] SERVICES documented in this encounter Visit Diagnoses Not on filedocumented in this encounter Care Teams Cabin Man Relationship Specialty Start Date End Date Safia Leal MD PCP - General 09/24/09 [address] [place] [address] documented as of this encounter
--- OUTSIDE RECORDS SUMMARY | 2021-10-28 00:27 | XMS_ITS | Clinical Summary ---
:1950 Author Organization [facility] Address [address] [place] [address] Care Team Providers Name Role Phone Safia Leal MD Primary Care Provider Social History Tobacco Use Types Packs/Day Years Used Date Never Assessed Sex Assigned at Date Recorded Not on file Plan of Treatment Health Maintenance Due Date Last Done Comments COVID-19 Vaccine (1) 1962 Fall Risk Screening 2015 Hepatitis C Screen Completed 02/27/2019 Insurance Payer Benefit Plan / Subscriber ID Effective Phone Address T ype Group Dates [facility] [id number] 2020-Pres [address] [facility] [place] [id number] [employer] [place] MED[place] [address] (Work) [id number] Shereen Medley Personal/Family Self 1950 [address] (Home) [facility] [phone] [place] (Work) [phone] Shereen Medley Personal/Family Self 1950 [address] (Home) [facility] [phone] [place] (Work) [phone] Jasmyne,Shereen Personal/Family Self 1950 [address] (Home) [facility] [phone] [place] (Work) [phone] Call,Shereen Personal/Family Self 1950 [address] (Home) [facility] [phone] [place] (Work) [phone] Call,Shereen Personal/Family Self 1950 [address] (Home) [facility] [phone] [place] (Work) [phone] Call,Shereen Personal/Family Self 1950 [address] (Home) [facility] [phone] [place] (Work) [phone] Call,Shereen Personal/Family Self 1950 [address] (Home) [facility] [phone] [place] (Work) [phone] Care Teams Rim Turning Finisher Relationship Specialty Start Date End Date Safia Leal MD PCP - General 09/24/09 [address] [place] [address]
--- OUTSIDE RECORDS SUMMARY | 2021-10-28 00:27 | XMS_ITS | Encounter Summary ---
:1950 Author Organization [facility] Address [address] [place] [address] Care Team Providers Name Role Phone Safia Leal MD Primary Care Provider Unknown, Provider Primary Care Provider Encounter Details Date Type Department Care Team Description 08/31/2006 Results Only [facility] - Dennis Clarke MD conversion [address] [place] [id number] Social History Tobacco Use Types Packs/Day Years Used Date Never Assessed Sex Assigned at Date Recorded Not on file documented as of this encounter Plan of Treatment Not on filedocumented as of this encounter Procedures Procedure Name Priority Date/Time Associated Diagnosis Comme nts CYTOPATHOLOGY Routine 08/31/2006 0:00 EDT Results for this procedure are i n the results section . documented in this encounter Results CYTOPATHOLOGY (08/31/2006 0:00 EDT) Pathology Report: CYTOPATHOLOGY REPORT [facility] Reports generated via electronic interface contain luis a ginal data; however they are lacking the format of the original re port. Caution should be taken when reading/interpreting unfo rmatted reports. Name: ? PAKO TEE ? Accession #: ? [id number] : ? 1950 (Age: 56) ??F ?Collect Date: ? 08/04 Location: ? [facility] ? Receive Date : ? 09/03/2006 Provider: ?DENNIS VILLARREAL MD Copy to: ? Specimen/Source: ? ThinPrep Pap Test, Cervix/Endocervix, processed on TLabsPrep Imaging System, with manual evaluation Last Menstrual Period: ? Menstrual/ Status: ? Post ? SPECIMEN ADEQUACY ? Satisfactory for Evaluation - transformation zone component present GENERAL CATEGORIZATION ? Negative for Intraepithelial Lesion or Malignan cy ? Document reviewed and electronically signed by: ? RAMESH Aguilera(ASCP) ? Report Date: ??09/11/2006 14:24 End of Report Specimen Performing Organization Address City/State/ZIP Code Phon e Number [facility] [address] [place] [address] SERVICES [facility] [address] [place] [address] documented in this encounter Visit Diagnoses Not on filedocumented in this encounter Care Teams Crisis Nurse Relationship Specialty Start Date End Date Safia Leal MD PCP - General 09/24/[address] [place] [id number] Unknown, MD Barbie PCP - General 09/09/09 09/23/09 documented as of this encounter
--- OUTSIDE RECORDS SUMMARY | 2021-10-28 00:27 | XMS_ITS | Encounter Summary ---
:1950 Author Organization [facility] Address [address] [place] [address] Care Team Providers Name Role Phone Unavailable Primary Care Provider Unavailable Encounter Details Date Type Department Care Team Description 05/29/2000 Results Only [facility] - Dennis Clarke MD conversion [address] [place] [phone] Social History Tobacco Use Types Packs/Day Years Used Date Never Assessed Sex Assigned at Date Recorded Not on file documented as of this encounter Plan of Treatment Not on filedocumented as of this encounter Procedures Procedure Name Priority Date/Time Associated Diagnosis Comme nts SURGICAL PATHOLOGY Routine 05/29/2000 0:00 EST Re sults for this procedure are i n the results section. documented in this encounter Results SURGICAL PATHOLOGY (05/29/2000 0:00 EST) Pathology Report: SURGICAL PATHOLOGY REPORT [facility] Reports generated via electronic interface contain luis a ginal data; LAB however they are lacking the format of the original re port. Caution should be taken when reading/interpreting unfo rmatted reports. Name: ? PAKO TEE ? Accession #: ? [id number] ? : ? 1950 (Age: 50) ??F ? Collect Date: ? 05/29/2000 ? Location: ? [facility] ? Receive Date: ? 001 ? Provider: DENNIS VILLARREAL MD Copy to: SHAHRAM KAPADIA MD ? Final Pathologic Diagnosis: ? Endometrium, biopsy: - Weakly proliferative endometrium. Document reviewed and electronically signed by: Brenda Condon MD Report ??Date: 06/01/2000 09:00 By the signature above, the attending physician certif ies that he/she has personally conducted a gross and/or microscopic examin ation of the described specimens and rendered or confirmed the above diagnosi s. Specimen(s) Received: ? EM bx Clinical History: ? AUB ??no hormones Gross Description: ? Received in formalin labelled Call and endometrial is white, grossly hemorrhagic mucoid tissue wh ich approximates 0.75 cc in aggregate volume. ??The specimen is submitted in one cassette. ??(Napoleon Rushing/[facility] [place] End of Report Specimen Performing Organization Address City/State/ZIP Code Phon e Number [facility] [address] [place] [address] SERVICES [facility] [address] [place] [address] documented in this encounter Visit Diagnoses Not on filedocumented in this encounter
--- OUTSIDE RECORDS SUMMARY | 2021-10-28 00:27 | XMS_ITS | Encounter Summary ---
:[address] [facility] Address [address] [place] [address] Care Team Providers Name Role Phone Unknown, Provider Primary Care Provider Encounter Details Date Type Department Care Team Description 09/21/2009 Results Only [facility] Lavern Leal MD Laboratory Services - Samantha [address] [place] [address] [address] [facility] [place] [address] [phone] Social History Tobacco Use Types Packs/Day Years Used Date Never Assessed Sex Assigned at Date Recorded Not on file documented as of this encounter Plan of Treatment Not on filedocumented as of this encounter Procedures Procedure Name Priority Date/Time Associated Diagnosis Comme [facility] SURGICAL PATHOLOGY Routine 09/21/2009 0:00 EDT Re sults for this procedure are i n the results section. documented in this encounter Results SURGICAL PATHOLOGY (09/21/2009 0:00 EDT) Pathology Report: SURGICAL PATHOLOGY REPORT ? [facility] Reports generated via electr [employer] interface contain original data; ? LAB however they are lacking the format of the original report. ? Caution should be taken when reading/interpreting unformatted reports. ? Name: ? CALL, PAKO ? Accession #: ? [id number] ? : ? 1950 (Age: 59) ??F ? Collec t Date: ? 09/21/2009 ? Location: ? [facility] ? R eceive Date: ? 09/22/2009 ? Provider: SHAHRAM BERRIAN MD ? Copy to: ? Final Pathologic Diagnosis: ? Skin of leg, left low er, excision: ? - Seborrheic keratosis. ? Document reviewed and electr onically signed by: ? Donna Schwartz, MD ? Report ??Date: 09/24/2009 16 :33 ? By the signature above, the attending physician certifies that he/she has ? personally conducted a gross and/or microscopic examination of the described ? specimens and rendered or co nfirmed the above diagnosis. ? Specimen(s) Received: ? Elliptical excision o f 8.0 mm lesion L lower leg ? Clinical History: ? Changing nevus L lowe r leg, brownish with 2 areas of skin color ? Gross Description: ? Received in formalin labelled Call, Pako and L lower leg is an ? unoriented, elliptical excis ion of lopez skin which measures 1.8 x 0.8 cm and is ?? excised to a depth of 0.6 cm . ??There is a central lopez-brown, verrucoid nodule ?? measuring 1.1 x 0.7 x 0.2 cm . ??The margins are inked black. ??The specimen is ? serially sectioned and entir jacques submitted as (A1) and (A2) central sections and (A3) tips, reverse en face. ??(MahendraLynda Fonseca)/kmm ? End of Report ? Specimen Performing Organization Address City/State/[facility] Code Phon e Number [facility] [address] [place] [address] SERVICES [facility] [address] [place] [address] documented in this encounter Visit Diagnoses Not on filedocumented in this encounter Care Teams Statistics Tutor Relationship Specialty Start Date End Date Unknown, Provider, PCP - General 09/09/09 09/23/09 documented as of this encounter
--- OUTSIDE RECORDS SUMMARY | 2021-10-28 00:27 | XMS_ITS | Encounter Summary ---
:1950 Author Organization [facility] Address [address] [place] [address] Care Team Providers Name Role Phone Safia Leal MD Primary Care Provider Encounter Details Date Type Department Care Team Description 12/25/2020 Lab Requisition [facility] John Zavala Abnor mal finding of blood chemistry, unspecified; Pathology & DO Gastrointestinal hemorrhage, unspecified ; Laboratory Medicine [address] [facility] [place] Noninfec tive gastroenteritis and colitis, unspecified - [facility] [address] [place] [phone] Social History Tobacco Use Types Packs/Day Years Used Date Never Assessed Sex Assigned at Date Recorded Not on file documented as of this encounter Plan of Treatment Not on filedocumented as of this encounter Procedures Procedure Name Priority Date/Time Associated Diagnosis Comme nts SURGICAL PATHOLOGY Today 12/24/2020 8:35 Abnormal finding of Results for this EDT blood chemistry, procedure a re in unspecified the results Gastrointestinal section. hemorrhage, unsp ecified Noninfective gastroenteritis and colitis, unspecified documented in this encounter Results SURGICAL PATHOLOGY (12/24/2020 8:35 EDT) Note to Patient The following [facility] MED[facility] pathology results CENTER have been interpreted LABORATORY by your pathologist SERVICES and may be available to you before your health provider has had the opportunity to review them. Please allow time for your provider to receive these results and explore management options, if applicable. Final Diagnosis A. DUODENUM, SECOND PORTION, BIOPSY: U MEDICAL - Erosive peptic duodenitis. CENTER LABORATORY B. STOMACH, GASTRIC ANTRUM ERYTHEMA, BIOPSY: SERVICES - Gastric antral mucosa with reactive (chemical) gastr opathy. - Negative for Helicobacter pylori organisms on H+E st ained sections. C. STOMACH, GREATER CURVE, ERYTHEMA, BIOPSY: - Gastric body mucosa with reactive (chemical) gastrop athy. - Negative for Helicobacter pylori organisms on H+E st ained sections. D. ESOPHAGUS, 40 CM, BIOPSY: - Squamocolumnar junctional mucosa with active erosive reflux esophagitis. - Negative for intestinal metaplasia; Negative for dys plasia. E. COLON, CECUM, BIOPSY: - Colonic mucosa with no specific pathologic features. F. COLON, ASCENDING, BIOPSY: - Colonic mucosa with no specific pathologic features. G. COLON, TRANSVERSE, BIOPSY: - Colonic mucosa with no specific pathologic features. H. COLON, DESCENDING, BIOPSY: - Colonic mucosa with no specific pathologic features. I. COLON, SIGMOID, POLYP, BIOPSY: - Fragments of tubular adenoma. J. COLON, SIGMOID, BIOPSY: - Colonic mucosa with no specific pathologic features. Attestation By the signature [facility] Electronica lly below, the attending CENTER signed by Pricila physician certifies LABORATORY MD Samantha on that they have 1) SERVICES 12/28/2020 at 1727 personally conducted a gross and/or microscopic examination of the described specimen(s), and/or personally interpreted the results of laboratory testing of the described specimen(s), and 2) personally rendered or confirmed the above diagnosis. Clinical History History of tubular adenoma, chronic diarrhea; occult blood positive; antral + greater curvature erythema; clinical diagnosis code: K92.2, R79.9, K52.9 [facility] SERVICES Gross Description A. [facility]ICAL Received in formalin kishor d with proper patient identification (initials C, L) and second portion of duodenum are four lopez tissues ranging from 0.2 x 0.2 x 0.1 cm to 0.3 x 0.2 x 0.2 cm. Entirely submitted in A1. [facility] B. SERVICES Received in formalin kishor d with proper patient identification (initials C, L) and gastric antrum erythema are two lopez tissues, 0.2 x 0.1 x 0.1 cm and 0.3 x 0.2 x 0.2 cm. Entirely submitted in B1. C. Received in formalin kishor d with proper patient identification (initials C, L) and gastric greater curvature erythema are two lopez tissues, 0.2 x 0.1 x 0.1 cm and 0.2 x 0.2 x 0.2 cm. Entirely submitted in C1. D. Received in formalin kishor d with proper patient identification (initials C, L) and esophagus @ 40 cm rule out Albert's is a lopez nodular tissue, 0.2 x 0.2 x 0.2 cm. Entirely submitted in D1. E. Received in formalin kishor d with proper patient identification (initials C, L) and Bx's cecum? are three lopez tissues ranging from 0.1 x 0.1 by less than 0.1 cm to 0.3 x 0.1 x 0.1 cm. Entirely submitted in E1. F. Received in formalin kishor d with proper patient identification (initials C, L) and Bx ascending colon are three lopez tissues ranging from less than 0.1 cm in greatest dimension to 0.2 x 0.2 x 0.2 cm. Entirely submitted in F1. G. Received in formalin kishor d with proper patient identification (initials C, L) and transverse colon Bx are two lopez-brown tissues averaging 0.2 x 0.2 x 0.1 cm. Entirely submitted in G1. H. Received in formalin kishor d with proper patient identification (initials C, L) and descending colon Bx are two lopez tissues averaging 0.4 x 0.1 x 0.1 cm. Entirely submitted in H1. I. Received in formalin kishor d with proper patient identification (initials C, L) and sigmoid colon polyp 6 mm cold snare is a lopez-brown tissue, 0.6 x 0.5 x 0.2 cm. Bisected and entirely submitted in I1. J. Received in formalin kishor d with proper patient identification (initials C, L) and sigmoid colon biopsy is a lopez-brown tissue, 0.2 x 0.2 x 0.2 cm. Entirely submitted in J1. SINGH Shields(ASCP) 12/27/2020 8:03 Performing Lab [facility] SERVICES Scanned Images [facility] SERVICES Specimen Tissue - Entire sigmoid colon (body stru cture) Tissue specimen (specimen) - Entire stom ach (body structure) Tissue specimen (specimen) - Entire stom ach (body structure) Tissue specimen (specimen) - Entire esop hagus (body structure) Tissue specimen (specimen) - Cecum struc ture (body structure) Tissue specimen (specimen) - Ascending c olon structure (body structure) Tissue specimen (specimen) - Entire peterson sverse colon (body structure) Tissue specimen (specimen) - Descending colon structure (body structure) Tissue specimen (specimen) - Entire sigm oid colon (body structure) Tissue specimen (specimen) - Entire sigm oid colon (body structure) Performing Organization Address City/State/ZIP Code Phon e Number [facility] [address] [place] [address] SERVICES documented in this encounter Visit Diagnoses Diagnosis Abnormal finding of blood chemistry, uns pecified Gastrointestinal hemorrhage, unspecified Noninfective gastroenteritis and colitis , unspecified documented in this encounter Care Teams Coal Conveyor Operator Relationship Specialty Start Date End Date Safia Leal MD PCP - General 09/24/[address] [place] [id number] documented as of this encounter
--- NOTE | 2021-10-28 13:58 | DI.CTLCSR_ITS ---
Exam(s) CT CHEST LUNG CANCER SCREEN EXAM: CT CHEST LUNG CANCER SCREEN CLINICAL HISTORY: SCREENING FOR LUNG CA, SMOKER, F17.210. TECHNIQUE: Imaging Protocol: Low Dose Technique CONTRAST MATERIAL: None COMPARISON: CT CT CHEST LUNG CANCER SCREEN from 11/26/2019 FINDINGS: CHEST: LUNGS: Tiny pleural base nodule posteriorly in the left upper lobe is unchanged. Also unchanged is a pleural based 5 millimeter nodule posteriorly in the right upper lobe. Also unchanged is a 7 x 5 mi llimeter fissure based nodule right middle lobe region. MEDIASTINUM: There is no obvious hilar nor mediastinal adenopathy. CARDIAC: Heart size is normal. There is no pericardial effusion.Caliber of the thoracic aorta is wit hin normal limits. OTHER: Tiny calculus noted in the left kidney, nonobstructive. Previous cholecystectomy. Hepatomega ly. No splenomegaly. OSSEOUS: No significant osseous lesions.. IMPRESSION: 1. Stable appearing bilateral pulmonary findings, unchanged from 11/26/2019. No new nodules nor pleu ral effusions. 2. Other findings as above. 3. Lung RADS Cat 2 - Benign Appearance / Behavior: Nodules with a very low likelihood of becoming a c linically active cancer due to size or lack of growth Lung-RADS 1.0 CATEGORIES: Category 0 - Prior chest CT exam(s) being located for comparison. Category 1 - Annual screening in 12 months. No nodules or definitely benign nodules. Category 2 - Annual screening in 12 months. Benign appearance. Nodules with low likelihood of becomin g active cancer. Category 3 - 6-month follow-up. Probably benign. Short-term follow-up suggested. Nodules with low lik elihood of becoming active cancer. Category 4A - 3-month follow-up and CT/PET if >8 mm in size. Suspicious finding. Findings which requi re additional testing. Category 4B - Findings which require additional testing and tissue sampling. Category 4X - Category 3 or 4 nodules with additional features or imaging findings that increases the suspicion of malignancy. Modifier S- Potentially clinically significant findings (non lung cancer) RADIATION DOSE DELIVERED: 80.88mGy.cm Total DLP 1.84mGy CTDIvol DATA REPOSITORY: All CT scans at this facility are submitted to the National Radiology Data Registry (NRDR) Dose Index Registry (DIR) with the [employer] (ACR). RADIATION OPTIMIZATION: All CT scans at this facility use at least one of these dose optimization te chniques: automated exposure control; mA and/or kV adjustment per patient size (includes targeted exa ms where dose is matched to clinical indication); or iterative reconstruction.
== END ==
PROVIDERS: PCP Family Medicine; Visit Provider Nurse Practitioner Family
DX: Z12.2 Encounter for screening for malignant neoplasm of respiratory organs (principal); F17.210 Nicotine dependence, cigarettes, uncomplicated; R91.8 Other nonspecific abnormal finding of lung field; Z12.31 Encounter for screening mammogram for malignant neoplasm of breast; N60.81 Other benign mammary dysplasias of right breast; N60.82 Other benign mammary dysplasias of left breast; Z13.820 Encounter for screening for osteoporosis; Z78.0 Asymptomatic menopausal state
CPT/HCPCS: 71271; 77063; 77067; 77080

== ENCOUNTER 2021-11-17 16:49 | Outpatient (REF) | payer MEDICARE, SELFPAY ==
[2021-11-17 15:53] LABS: HCT 45.2 % (36.0-46.0); HGB 15.2 g/dL (11.2-15.7); MCH 31.9 pg (27.0-33.0); MCHC 33.6 % (32.0-36.0); MCV 95 fL (80-95); MPV 10.7 fL (8.0-11.0); Platelet Count 281 10^3/uL (130-400); RBC 4.76 10^6/uL (3.93-5.22); RDW 13.1 % (11.7-14.6); RDW-SD 45.3 fL
[2021-11-17 16:50] LABS: Vitamin B12 505 pg/mL (193-986)
== END 2021-11-17 16:50 | disposition home or self-care (01) ==
LOC: NCHCN 16:49
PROVIDERS: PCP Family Medicine; Visit Provider Nurse Practitioner Family
DX: R22.41 Localized swelling, mass and lump, right lower limb (principal); L81.9 Disorder of pigmentation, unspecified
CPT/HCPCS: 85027; 82607

== ENCOUNTER 2021-12-09 12:14 | Outpatient (REF) | payer MEDICARE, SELFPAY ==
--- NOTE | 2021-12-09 08:50 | SKI_PTH ---
PATIENT: Shereen Medley LOC: [facility] U#:[id number] AGE/SX: 71/F ROOM: RE12/09/[address]: Alona Keller : 1950 BED: DIS: 12/09/2021 SPEC #: [id number] RECD: 12/09/21 17:08 STATUS: DOUGLAS REQ #: [id number] MARLENY: 12/09/21 08:[address]: Alona Keller DEPT: Surgical Specimen RECD BY: Karina Savage ENTERED: 12/09/21 17:09 SP TYPE: SKI OTHR DR: Safia Leal V Tissues: 1 - SKIN BIOPSY(SHAVE/PUNCH) Procedures: SKIN LEVEL 4 SPECIAL STAIN 1 Comments: [id number]
== END 2021-12-09 12:15 | disposition home or self-care (01) ==
LOC: NCHCN 12:14
PROVIDERS: PCP Family Medicine; Visit Provider Nurse Practitioner Family
DX: L81.9 Disorder of pigmentation, unspecified (principal); R21 Rash and other nonspecific skin eruption
CPT/HCPCS: 88305; 88312

== ENCOUNTER 2022-04-13 14:00 | Outpatient (REF) | payer MEDICARE, SELFPAY ==
[2022-04-13 15:54] LABS: Calculated LDL 71 mg/dL (<100); Cholesterol 181 mg/dL (<200); HDL Cholesterol 32 mg/dL (40-60); Triglyceride 393 mg/dL (<150)
[2022-04-13 16:04] LABS: Hemoglobin A1C 6.2 % (<5.7)
[2022-04-13 16:19] LABS: COMMENT (LAB VIEW ONLY) 88.13 mg/dL; Microalb ug/mg Crea 6.8 ug/mg Cr
== END 2022-04-13 14:01 | disposition home or self-care (01) ==
LOC: NCHCN 14:00
PROVIDERS: PCP Family Medicine; Visit Provider Nurse Practitioner Family
DX: E11.9 Type 2 diabetes mellitus without complications (principal)
CPT/HCPCS: 80061; 82043; 82570; 83036

== ENCOUNTER 2022-10-19 07:45 | Outpatient (REF) | payer MEDICARE, SELFPAY ==
[2022-10-19 14:44] LABS: Hemoglobin A1C 6.2 % (<5.7)
[2022-10-19 14:45] LABS: Anion Gap 10.5 mmol/L (3-11); BUN 22 mg/dL (7-18); CO2 23.5 mmol/L (21.0-32.0); CREATININE 1.4 mg/dL (0.55-1.02); Calcium 10.7 mg/dL (8.5-10.1); Chloride 108 mmol/L (98-107); Cholesterol 181 mg/dL (<200); Estimated GFR 39.97 (mL/min/1.73m2); Glucose 126 mg/dL (74-106); HDL Cholesterol 33 mg/dL (40-60); Potassium 5.3 mmol/L (3.5-5.1); Sodium 142 mmol/L (136-145); Triglyceride 445 mg/dL (<150)
[2022-10-19 15:16] LABS: LDL CHOLESTEROL 98 mg/dL (<100)
== END 2022-10-19 07:46 | disposition home or self-care (01) ==
LOC: NCHCN 07:45
PROVIDERS: PCP Family Medicine; Visit Provider Nurse Practitioner Family
DX: I10 Essential (primary) hypertension (principal); E11.9 Type 2 diabetes mellitus without complications; E78.1 Pure hyperglyceridemia
CPT/HCPCS: 80048; 80061; 83721; 83036

== ENCOUNTER 2022-11-13 11:30 | Outpatient (REF) | payer MEDICARE, SELFPAY ==
[2022-11-13 16:09] LABS: Anion Gap 11.3 mmol/L (3-11); BUN 17 mg/dL (7-18); CO2 23.7 mmol/L (21.0-32.0); CREATININE 1.2 mg/dL (0.55-1.02); Calcium 10.6 mg/dL (8.5-10.1); Chloride 104 mmol/L (98-107); Estimated GFR 48.09 (mL/min/1.73m2); Glucose 126 mg/dL (74-106); Potassium 4.7 mmol/L (3.5-5.1); Sodium 139 mmol/L (136-145)
== END 2022-11-13 11:31 | disposition home or self-care (01) ==
LOC: NCHCN 11:30
PROVIDERS: PCP Family Medicine; Visit Provider Nurse Practitioner Family
DX: I10 Essential (primary) hypertension (principal); R79.89 Other specified abnormal findings of blood chemistry
CPT/HCPCS: 80048

== ENCOUNTER → 2022-11-14 00:39 | Outpatient (CLI) | payer MEDICARE, SELFPAY ==
--- NOTE | 2022-11-14 | DI.CTLCSR_ITS ---
Exam(s) CT CHEST LUNG CANCER SCREEN EXAM: CT CHEST LUNG CANCER SCREEN CLINICAL HISTORY: TOBACCO SMOKER F17.200 CIGARETTE SMOKER F17.210 SCREENING FOR LUNG CANCER TECHNIQUE: Imaging Protocol: Axial computed tomography images with coronal and sagittal reformatted images were created and reviewed. Low dose screening protocol. COMPARISON: CT CT CHEST LUNG CANCER SCREEN from 10/28/2021 FINDINGS: Tracheobronchial tree: No bronchiectasis or mucus plugging.. Mediastinum and Violeta: No dominant adenopathy or fluid collection. Pulmonary parenchyma: No consolidation or dominant measurable mass. Mild emphysematous changes. Lung Nodules: Stable 5 millimeter pleural-based nodule posterior right upper lobe. Stable 7 millimet er maximal dimension perifissural nodule right middle lobe. No new nodules. Pleura: No effusion. No pneumothorax. Heart: The heart is not dilated. Mild coronary artery calcifications are seen. Aorta: Thoracic aorta non-dilated.Mild atherosclerotic calcification. Upper abdomen: Enlarged liver. Status post cholecystectomy. Nonobstructing stone upper pole left ki dney. Bones: Degenerative changes flowing osteophytes in the thoracic spine. Soft Tissues: Unremarkable. IMPRESSION: No suspicious pulmonary nodules. Lung RADS Cat 2 - Benign Appearance / Behavior: Nodules with a very low likelihood of becoming a clin ically active cancer due to size or lack of growth Lung-RADS 1.0 CATEGORIES: Category 0 - Prior chest CT exam(s) being located for comparison. Category 1 - Annual screening in 12 months. No nodules or definitely benign nodules. Category 2 - Annual screening in 12 months. Benign appearance. Nodules with low likelihood of becomin g active cancer. Category 3 - 6-month follow-up. Probably benign. Short-term follow-up suggested. Nodules with low lik elihood of becoming active cancer. Category 4A - 3-month follow-up and CT/PET if >8 mm in size. Suspicious finding. Findings which requi re additional testing. Category 4B - Findings which require additional testing and tissue sampling. Category 4X - Category 3 or 4 nodules with additional features or imaging findings that increases the suspicion of malignancy. Modifier S- Potentially clinically significant findings (non lung cancer) RADIATION DOSE DELIVERED: 79.3mGy.cm Total DLP DATA REPOSITORY: All CT scans at this facility are submitted to the National Radiology Data Registry (NRDR) Dose Index Registry (DIR) with the [employer] (ACR). RADIATION OPTIMIZATION: All CT scans at this facility use at least one of these dose optimization te chniques: automated exposure control; mA and/or kV adjustment per patient size (includes targeted exa ms where dose is matched to clinical indication); or iterative reconstruction.
== END ==
PROVIDERS: PCP Family Medicine; Visit Provider Nurse Practitioner Family
DX: F17.210 Nicotine dependence, cigarettes, uncomplicated (principal); Z12.2 Encounter for screening for malignant neoplasm of respiratory organs
CPT/HCPCS: 71271

== ENCOUNTER 2023-04-26 15:01 | Outpatient (REF) | payer MEDICARE, SELFPAY ==
[2023-04-26 15:55] LABS: ALT 41 U/L (14-59); AST 26 U/L (15-37); Albumin 3.7 g/dL (3.4-5.0); Alkaline Phosphatase 75 U/L (46-116); Anion Gap 11.6 mmol/L (3-11); BUN 19 mg/dL (7-18); Bilirubin, Total 0.4 mg/dL (0.2-1.0); CO2 22.4 mmol/L (21.0-32.0); CREATININE 1.4 mg/dL (0.55-1.02); Calcium 10.6 mg/dL (8.5-10.1); Calculated LDL 50 mg/dL (<100); Chloride 107 mmol/L (98-107); Cholesterol 142 mg/dL (<200); Estimated GFR 39.73 (mL/min/1.73m2); Glucose 117 mg/dL (74-106); HDL Cholesterol 31 mg/dL (40-60); Potassium 4.8 mmol/L (3.5-5.1); Sodium 141 mmol/L (136-145); Total Protein 7.5 g/dL (6.4-8.2); Triglyceride 306 mg/dL (<150)
== END 2023-04-26 15:02 | disposition home or self-care (01) ==
LOC: NCHCN 15:01
PROVIDERS: PCP Family Medicine; Visit Provider Nurse Practitioner Family
DX: R73.03 Prediabetes (principal); E78.1 Pure hyperglyceridemia; R79.89 Other specified abnormal findings of blood chemistry
CPT/HCPCS: 80053; 80061; 83036

== ENCOUNTER 2023-05-10 10:00 | Outpatient (REF) | payer MEDICARE, SELFPAY ==
[2023-05-10 23:05] LABS: Parathyroid Hormone,Intact 70 pg/mL (19-88)
== END 2023-05-10 10:01 | disposition home or self-care (01) ==
LOC: NCHCN 10:00
PROVIDERS: PCP Family Medicine; Referring Provider Nurse Practitioner Family; Visit Provider Nurse Practitioner Family
DX: R94.4 Abnormal results of kidney function studies (principal)
CPT/HCPCS: 83970

== ENCOUNTER → 2023-05-16 00:55 | Outpatient (CLI) | payer MEDICARE, SELFPAY ==
--- NOTE | 2023-05-16 | DI.US_ITS ---
Exam(s) US RENAL EXAM: US RENAL CLINICAL HISTORY: R94.4 Abn results of kidney function studies,DEC RENAL FUNCTION. TECHNIQUE: Carney scale, color and spectral Doppler were used. COMPARISON: US RENAL ULTRASOUND from 03/17/2016 CT RENAL COLIC WO CONTRAST from 07/17/2016 FINDINGS: Renal size in cm: Right: 9.8. Left: 10.2. Echogenicity: Normal. Hydronephrosis: No. Cyst or mass: No. Nephrolithiasis: There is an 8 mm echogenic focus in the upper pole of the left kidney which may repr esent a nonobstructing stone. Other findings: None. Bladder:The urinary bladder was incompletely distended. This limits evaluation. At the base of the bladder there is a hypoechoic avascular 2 x 1.7 x 1.7 cm nodule. Ureteral jets: Right: Visualized and unremarkable. Left: The left ureteral jet was not visualized on this examination. Prevoid vol:59 cc Postvoid vol:0 cc Renal color flow: Symmetric and within normal limits. IMPRESSION: 1. Left nephrolithiasis. No obstructive uropathy. 2. Question of a 2 x 1.7 x 1.7 cm hypoechoic mass in the base of the urinary bladder. CT urogram opal uld be considered for further evaluation. Unexpected findings DATA REPOSITORY:
== END ==
PROVIDERS: PCP Family Medicine; Visit Provider Nurse Practitioner Family
DX: R94.4 Abnormal results of kidney function studies (principal)
CPT/HCPCS: 76770

== ENCOUNTER 2023-05-18 10:33 | Outpatient (REF) | payer MEDICARE, SELFPAY ==
[2023-05-18 15:29] LABS: Anion Gap 12.2 mmol/L (3-11); BUN 26 mg/dL (7-18); CO2 21.8 mmol/L (21.0-32.0); CREATININE 1.8 mg/dL (0.55-1.02); Calcium 10.6 mg/dL (8.5-10.1); Chloride 107 mmol/L (98-107); Estimated GFR 29.38 (mL/min/1.73m2); Glucose 121 mg/dL (74-106); Potassium 4.6 mmol/L (3.5-5.1); Sodium 141 mmol/L (136-145)
== END 2023-05-18 10:34 | disposition home or self-care (01) ==
LOC: NCHCN 10:33
PROVIDERS: PCP Family Medicine; Visit Provider Nurse Practitioner Family
DX: R79.89 Other specified abnormal findings of blood chemistry (principal)
CPT/HCPCS: 80048

== ENCOUNTER 2023-06-07 13:23 | Outpatient (CLI) | payer MEDICARE, SELFPAY ==
[2023-06-07 13:37] LABS: CREATININE 1.8 mg/dL (0.55-1.02); Estimated GFR 29.38 (mL/min/1.73m2)
== END 2023-06-07 13:24 | disposition home or self-care (01) ==
LOC: LBO 13:23
PROVIDERS: PCP Family Medicine; Visit Provider Nurse Practitioner Family
DX: R79.89 Other specified abnormal findings of blood chemistry (principal)
CPT/HCPCS: 36415; 82565

== ENCOUNTER → 2023-06-18 03:26 | Outpatient (CLI) | payer MEDICARE, SELFPAY ==
[2023-06-18 15:20] LABS: CREATININE 1.7 mg/dL (0.55-1.02); Estimated GFR 31.47 (mL/min/1.73m2)
--- NOTE | 2023-06-18 16:59 | DI.CT_ITS ---
Exam(s) CT ABDOMEN PELVIS WO/W EXAM: CT ABDOMEN PELVIS WO/W CLINICAL HISTORY: MASS OF URINARY BLADDER,N32.89,F/U ABNL US. TECHNIQUE: Imaging Protocol: Axial computed tomography images with coronal and sagittal reformatted images were created and reviewed. Images were performed from the lung bases through the ischial tuberosities before IV contrast and fol lowing IV contrast using a 70 second delay, followed by 7 minutes delayed images. CONTRAST MATERIAL: Intravenous: Omnipaque 350 Contrast volume:100 cc Oral: no COMPARISON: CT RENAL COLIC WO CONTRAST from 07/17/2016 US US RENAL from 05/16/2023 FINDINGS: ABDOMEN: Lung Bases: Normal where visualized. Liver: Normal density. No measurable mass. Gallbladder and biliary tract: Status post cholecystectomy. No biliary dilatation. Pancreas: Normal density, no abnormal calcifications or inflammatory process. Tail somewhat atrophic . Spleen: Normal. Kidneys: Normal size, contour and axis. Nonobstructing stones lower pole right kidney. No suspicious masses seen. Adrenal glands: No masses seen. Lymph nodes: Within normal limits. Abdominal Aorta: Abdominal portion non-dilated. Atherosclerotic changes. Soft tissues: Unremarkable. PELVIS: Bladder: Mild wall thickening at the base of the bladder. No focal mass visible. No evidence of a m ass.No evidence of calculi. Bowel: Diverticulosis. No obstruction or bowel wall thickening. Appendix normal. Peritoneal cavity: No ascites, collection or mesenteric inflammatory response. Soft tissues: Bones: Unremarkable for age.. Reproductive organs: Unremarkable for age.. IMPRESSION: Mild focal thickening at the base of the bladder in the region of the urethra. No definite mass. Cy stoscopy recommended for further evaluation. RADIATION DOSE DELIVERED: 3,378.77mGy.cm Total DLP DATA REPOSITORY: All CT scans at this facility are submitted to the National Radiology Data Registry (NRDR) Dose Index Registry (DIR) with the [employer] (ACR). RADIATION OPTIMIZATION: All CT scans at this facility use at least one of these dose optimization te chniques: automated exposure control; mA and/or kV adjustment per patient size (includes targeted exa ms where dose is matched to clinical indication); or iterative reconstruction.
[2023-06-18] MEDS: Omnipaque 350 MG/ML 100 ML BTL IJ (17:02)
[2023-06-18] MEDS: Normal Saline - Diluent 50 ML VIAL IJ ×2 (17:03→17:04)
== END ==
PROVIDERS: PCP Family Medicine; Visit Provider Nurse Practitioner Family
DX: N32.89 Other specified disorders of bladder (principal); N20.0 Calculus of kidney
CPT/HCPCS: 74178; 82565; J3490

== ENCOUNTER 2023-08-26 17:54 | Emergency (ER) | payer MEDICARE, SELFPAY ==
[2023-08-26] VITALS (7 sets, daily range): BP systolic 111–153; BP diastolic 28–86; PULSE 53–70; RESP 14–20; TEMP 36.7–36.8; O2SAT 96–97
[2023-08-26 18:18] LABS: Bilirubin Small (Negative); Blood Negative (Negative); Clarity Sl Cloudy (Clear); Glucose Negative (Negative); Ketones Negative (Negative); Leukocyte Esterase Negative (Negative); Nitrite Negative (Negative); Specific Gravity >= 1.030 (1.005-1.025); Urobilinogen 0.2 mg/dL (Up to 0.2); pH 5.5 (5-8)
[2023-08-26 18:21] LABS: Epithelial Cells Few HPF (Negative); RBC 0-2 HPF (0-2); WBC 0-2 HPF (0-5)
[2023-08-26 18:22] LABS: Bacteria Negative HPF (Negative); C & S Indicated? No; Casts Negative LPF (Negative); Crystals Negative HPF (Negative); Mucus Negative (Negative)
[2023-08-26 18:58] LABS: Abs Immature Grans 0.06 10^3/uL (0.0-0.06); Absolute Eosinophil Count 0.17 10^3/uL (0.0-0.7); Absolute Lymphocyte Count 2.35 10^3/uL (1.2-3.4); Absolute Monocyte Count 0.66 10^3/uL (0.1-0.8); Absolute Neutrophil Count 10.55 10^3/uL (1.2-6.7); Basophils % 0.4 %; Eosinophils % 1.2 %; HCT 43.6 % (36.0-46.0); HGB 14.2 g/dL (11.2-15.7); Immature Grans % 0.4 %; MCH 31.8 pg (27.0-33.0); MCHC 32.6 % (32.0-36.0); MCV 98 fL (80-95); MPV 9.8 fL (8.0-11.0); Monocytes % 4.8 %; Neutrophils % 76.2 %; Platelet Count 290 10^3/uL (130-400); RBC 4.47 10^6/uL (3.93-5.22); RDW 13.3 % (11.7-14.6); RDW-SD 47.5 fL; WBC 13.84 10^3/uL (4.4-10.8)
[2023-08-26 19:05] LABS: Absolute Basophil Count 0.06 10^3/uL (0.0-0.2)
[2023-08-26] MEDS: Famotidine 20 MG/2 ML VIAL IVP (19:11)
[2023-08-26] MEDS: ACETAMINOPHEN 1,000 MG/100 ML BTL 400 MG IVPB (19:11)
[2023-08-26] MEDS: Normal Saline 500 ML 1000 ML IV ×2 (19:11→19:33)
[2023-08-26 19:12] LABS: ALT 27 U/L (14-59); AST 13 U/L (15-37); Albumin 3.9 g/dL (3.4-5.0); Alkaline Phosphatase 79 U/L (46-116); Anion Gap 12.8 mmol/L (3-11); BUN 24 mg/dL (7-18); Bilirubin, Total 0.33 mg/dL (0.2-1.0); CO2 21.2 mmol/L (21.0-32.0); CREATININE 1.9 mg/dL (0.55-1.02); Calcium 11.1 mg/dL (8.5-10.1); Chloride 105 mmol/L (98-107); Estimated GFR 27.54 (mL/min/1.73m2); Glucose 131 mg/dL (74-106); Lipase 41 U/L (16-77); Potassium 4.5 mmol/L (3.5-5.1); Sodium 139 mmol/L (136-145); Total Protein 7.7 g/dL (6.4-8.2)
[2023-08-26] MEDS: Ondansetron 4 MG/2 ML VIAL IVP (19:12)
[2023-08-26 19:31] LABS: COVID-19 PCR Negative (Negative); Influenza A PCR Negative (Negative); Influenza B PCR Negative (Negative); RSV PCR Negative (Negative)
[2023-08-26 19:35] LABS: Source Nasopharynx
[2023-08-26] MEDS: MORPHine 4 MG/ML SYR 2 MG IVP (20:13)
--- NOTE | 2023-08-26 20:13 | W.ED.GENAD ---
Discharge Plan Disposition Patient Disposition: Home Condition: Improving Discharge Details Chief Complaint: Abd Prob Clinical Impression: Abdominal pain Primary Care Provider: Alona Keller ED Provider: Roe Purcell Home Meds and New Rx's Prescriptions: No Action cholecalciferol (vitamin D3) 50 mcg (2,000 unit) capsule 50 mcg PO DAILY atenolol 25 mg tablet 25 mg PO DAILY lisinopril-hydrochlorothiazide 1 EACH tablet 2 tab-cap PO DAILY loratadine [Claritin] 10 mg tablet 10 mg PO DAILY hydrocortisone-acetic acid 1-2 % drops 5 drp otic (ear) QID latanoprost 0.005 % drops 1 drp ophthalmic (eye) QPM lisinopril 20 mg tablet 20 mg PO DAILY mometasone 0.1 % ointment 1 applic topical DAILY omega-3 fatty acids 1,000 mg capsule 1,000 mg PO DAILY timolol maleate 0.5 % drops 1 drp ophthalmic (eye) DAILY multivitamin [Multi-Day] 1 EACH tablet 1 ea PO DAILY Discharge Instructions Instructions: Abdominal Pain, Adult ED HPI General Date/Time Provider Initiated Documentation: 08/26/23 17:59. HPI Narrative: 73-year-old female presents with abdominal pain nausea vomiting over the last 2 days generalized abdominal pain, no loose stool. Related Data Home Medications Medication Instructions Recorded Confirmed multivitamin (Multi-Day tablet) 1 ea PO DAILY 02/24/16 08/26/23 lisinopril 20 2 tab-cap PO DAILY 03/02/17 08/26/23 mg-hydrochlorothiazide 12.5 mg tablet atenolol 25 mg tablet 25 mg PO DAILY 09/09/19 08/26/23 cholecalciferol (vitamin D3) 50 50 mcg PO DAILY 09/09/19 08/26/23 mcg (2,000 unit) capsule hydrocortisone-acetic acid 1 %-2 % 5 drp otic (ear) QID 06/19/23 08/26/23 ear drops latanoprost 0.005 % eye drops 1 drp ophthalmic (eye) QPM 06/19/23 08/26/23 lisinopril 20 mg tablet 20 mg PO DAILY 06/19/23 08/26/23 loratadine 10 mg tablet (Claritin) 10 mg PO DAILY 06/19/23 08/26/23 mometasone 0.1 % topical ointment 1 applic topical DAILY 06/19/23 08/26/23 omega-3 fatty acids 1,000 mg 1,000 mg PO DAILY 06/19/23 08/26/23 capsule timolol maleate 0.5 % eye drops 1 drp ophthalmic (eye) DAILY 06/19/23 08/26/23 Allergies Allergy/AdvReac Type Severity Reaction Status Date / Time metformin AdvReac Skin Rash Verified 08/26/23 18:00 General Stated Complaint: Abd Prob LUIZA: 3 Review of Systems Narrative: Review of Systems Constitutional: negative Eyes: negative ENT: negative Cardiovascular: negative Respiratory: negative Gastrointestinal: Abdominal pain nausea : negative Musculoskeletal: negative Skin: negative Neurologic: negative Psych: negative Exam Narrative Exam Narrative: Physical Examination General: alert, awake, cooperative, resting comfortably, no acute distress HEENT: normocephalic, atraumatic; PERRL, EOM intact, conjunctiva normal; no nasal discharge; moist mucous membranes, oral and pharyngeal mucosa normal, tolerating secretions Neck: supple, trachea midline; full ROM Chest: normal to inspection Respiratory: normal respiratory effort, speaking in full sentences, clear to auscultation, no wheezing, rales or rhonchi Cardiac: regular rate, regular rhythm, S1S2 intact, no murmurs rubs or gallops GI: abdomen soft, non-tender, non-distended; no palpable mass or hepatosplenomegaly Skin: no lesions, rashes or trauma appreciated Neuro: AAOx3, normal speech, moving all extremities Psych: Appropriate mood and affect Course Vital Signs Vital signs: Vital Signs Temperature 36.7 C 08/26/23 17:57 Pulse 70 08/26/23 17:57 Respiratory Rate 20 08/26/23 17:57 Blood Pressure 153/50 H 08/26/23 17:57 Pulse Oximetry 97 08/26/23 17:57 Temperature 36.7 C 08/26/23 17:57 Temperature Source Temporal Artery Scan 08/26/23 17:57 Pulse 62 08/26/23 19:02 Respiratory Rate 18 08/26/23 18:32 Respiratory Effort Normal, Non-Labored 08/26/23 18:01 Blood Pressure 132/86 08/26/23 19:02 Blood Pressure Mean 97 08/26/23 19:02 Blood Pressure Position Sitting 08/26/23 17:57 Pulse Oximetry 97 08/26/23 18:32 Oxygen Delivery Method Room Air 08/26/23 18:32 Oxygen Flow Rate 0 08/26/23 18:32 Lab/Test Results Lab/Test Results: Laboratory Tests Range/Units 08/26/23 08/26/23 18:10 18:50 WBC (4.4-10.8) 10^3/uL 13.84 H RBC (3.93-5.22) 10^6/uL 4.47 Hgb (11.2-15.7) g/dL 14.2 Hct (36.0-46.0) % 43.6 MCV (80-95) fL 98 H MCH (27.0-33.0) pg 31.8 MCHC (32.0-36.0) % 32.6 RDW (11.7-14.6) % 13.3 Plt Count (130-400) 10^3/uL 290 MPV (8.0-11.0) fL 9.8 Immature Gran % % 0.4 Neutrophils % % 76.2 Lymphocytes % % 17.0 Monocytes % % 4.8 Eosinophils % % 1.2 Basophils % % 0.4 Nucleated RBC % (0.0-0.3) % 0.0 Absolute Neutrophils (1.2-6.7) 10^3/uL 10.55 H Absolute Lymphocytes (1.2-3.4) 10^3/uL 2.35 Absolute Monocytes (0.1-0.8) 10^3/uL 0.66 Absolute Eosinophils (0.0-0.7) 10^3/uL 0.17 Absolute Basophils (0.0-0.2) 10^3/uL 0.06 Sodium (136-145) mmol/L 139 Potassium (3.5-5.1) mmol/L 4.5 Chloride (98-107) mmol/L 105 Carbon Dioxide (21.0-32.0) mmol/L 21.2 Anion Gap (3-11) mmol/L 12.8 H BUN (7-18) mg/dL 24 H Creatinine (0.55-1.02) mg/dL 1.9 H Est GFR (CKD-EPI 2020) (mL/min/1.73m2) 27.54 Glucose (74-106) mg/dL 131 H Calcium (8.5-10.1) mg/dL 11.1 H Total Bilirubin (0.2-1.0) mg/dL 0.33 AST (15-37) U/L 13 L ALT (14-59) U/L 27 Alkaline Phosphatase (46-116) U/L 79 Total Protein (6.4-8.2) g/dL 7.7 Albumin (3.4-5.0) g/dL 3.9 Lipase (16-77) U/L 41 Urine Color (Yellow) Yellow Urine Clarity (Clear) Sl Cloudy Urine pH (5-8) 5.5 Ur Specific Vill[place] (1.005-1.025) >= 1.030 H Urine Protein (Neg-Trace) mg/dL 30 H Urine Ketones (Negative) mg/dL Negative Urine Blood (Negative) Negative Urine Nitrite (Negative) Negative Urine Bilirubin (Negative) Small H Urine Urobilinogen (Up to 0.2) mg/dL 0.2 Ur Leukocyte Esterase (Negative) Negative Urine RBC (0-2) HPF 0-2 Urine WBC (0-5) HPF 0-2 Ur Epithelial Cells (Negative) HPF Few Urine Crystals (Negative) HPF Negative Urine Bacteria (Negative) HPF Negative Urine Casts (Negative) LPF Negative Urine Mucus (Negative) Negative Ur Culture Indicated? No Urine Glucose (Negative) mg/dL Negative COVID-19 Source Nasopharynx SARS-CoV-2 (PCR) (Negative) Negative Influenza Type A (PCR) (Negative) Negative Influenza Type B (PCR) (Negative) Negative RSV (PCR) (Negative) Negative Medical Decision Making 73-year-old female history of diabetes presents abdominal pain nausea and vomiting over the last 2 days, afebrile nontoxic nonperitoneal, no loose stool, no recent travel no recent antibiotics, history of cholecystectomy, consider viral gastroenteritis versus colitis lower suspicion for appendicitis or diverticulitis, most also consider UTI lower suspicion for bowel obstruction. Screening labs fluids close reassessment if no improvement patient needs imaging patient will need to be transferred as her CT scanner is not functioning 21: 08 patient feeling much better resting comfortably no acute distress no vomiting in department. Abdomen soft nontender nondistended hemodynamically stable labs unremarkable Home care instruction return precautions given Quality:SDOH Health Related Social Needs: No Data to Display PFSH All Active Problems (Updated 08/26/23 @ 21:09 by Roe Purcell MD) Abdominal pain (Acute) Disorder of skin (Acute) Localized skin eruption (Acute) Essential hypertension (Acute) Nicotine dependence (Acute) History of colon polyps (Acute) Pain of right hip joint (Acute) Nodule of skin of toe (Acute) Periapical abscess (Acute) Blood chemistry abnormality (Acute) History of urinary stone (Acute) Otitis externa (Acute) Prediabetes (Acute) Decreased renal function (Acute) Mass of urinary bladder (Acute) Sensorineural hearing loss (SNHL) of both ears (Acute) Ear itching (Acute) Calculus of both kidneys (Acute) Right ureteral stone (Acute) Medical History (Updated 08/26/23 @ 21:09 by Roe Purcell MD) HTN (hypertension) Hypertriglyceridemia Glaucoma Hx of smoking Hx of adenomatous colonic polyps Lung nodule Chronic diarrhea History of renal calculi Skin lesion Hip pain, right Occult blood in stools Dermatitis of ear canal Localized swelling of right lower leg Hyperpigmentation Skin rash Dental abscess Type 2 diabetes mellitus Otitis externa of both ears Surgical History (Updated 12/19/17 @ 14:35 by [employer]) D&C with Hysteroscopy (~2002) Bx Benign Cholecystectomy (~1977) Family History Mother Thyroid disease Father Brain cancer Lung cancer Grandmother Breast cancer PGM Daughter Thyroid disease Social History Smoking/Tobacco Use Status: Current every day Smoking risk assessment performed?: Yes Alcohol Intake: never Drug use: Never Substance use type: does not use Do you feel safe in your relationship?: Yes
[2023-08-26] MEDS: Ondansetron O.D.T. 4 MG TABEF, 3 TABS/BTL 12 MG (21:19)
== END 2023-08-26 21:24 | disposition home or self-care (01) ==
PROVIDERS: Emergency Provider Emergency Medicine; PCP Nurse Practitioner Family
DX: R10.9 Unspecified abdominal pain (principal); R11.10 Vomiting, unspecified; R50.9 Fever, unspecified; I10 Essential (primary) hypertension; E11.9 Type 2 diabetes mellitus without complications; F17.210 Nicotine dependence, cigarettes, uncomplicated; Z79.84 Long term (current) use of oral hypoglycemic drugs
CPT/HCPCS: 80053; 83690; 87637; 96361; 96365; 99284; 81003; 81015; 85025; J0131; J2270; J2405

== ENCOUNTER → 2023-09-11 12:43 | Outpatient (BNVA) | payer MEDICARE, SELFPAY | PROVIDERS: PCP Nurse Practitioner Family; Referring Provider Family Medicine; Visit Provider Nurse Practitioner Gerontology | DX: N32.89 Other specified disorders of bladder (principal); N20.0 Calculus of kidney | CPT/HCPCS: 81003; 99215 ==

== ENCOUNTER 2023-09-17 07:54 | Day surgery (SDC) | payer MEDICARE, SELFPAY ==
[2023-09-17 08:25] VITALS: BP 181/69; PULSE 81; RESP 20; TEMP 36.2; O2SAT 97
[2023-09-17] MEDS: Lactated Ringers 1,000 ML 80 ML IV (08:29)
--- NOTE | 2023-09-17 08:31 | ANES.PREOP_ITS ---
General Info Date of Service Date Performed: 09/17/23 Height: 5 ft 3 in Weight: 85.1 kg Body Mass Index (BMI): 33.2 Surgical Procedure: Operation Date: 09/17/23 10:10 Proposed Procedure Side Surgeon p Cysto, Transurethral Resection Bladder Tumor Michael Castillo MD Meds Allergies and Home Medications Allergies Allergy/AdvReac Type Severity Reaction Status Date / Time metformin AdvReac Skin Rash Verified 09/17/23 08:23 Home Medication ?Medication ?Instructions ?Recorded multivitamin (Multi-Day tablet) 1 ea PO DAILY 02/24/16 atenolol 25 mg tablet 25 mg PO DAILY 09/09/19 cholecalciferol (vitamin D3) 50 50 mcg PO DAILY 09/09/19 mcg (2,000 unit) capsule latanoprost 0.005 % eye drops 1 drp ophthalmic (eye) QPM 06/19/23 lisinopril 20 mg tablet 20 mg PO DAILY 06/19/23 mometasone 0.1 % topical ointment 1 applic topical DAILY 06/19/23 omega-3 fatty acids 1,000 mg 1,000 mg PO DAILY 06/19/23 capsule timolol maleate 0.5 % eye drops 1 drp ophthalmic (eye) DAILY 06/19/23 Current Visit Medications: Current Medications Generic Name Dose Route Start Last Admin Trade Name Freq PRN Reason Stop Dose Admin Ringer's Solution 1,000 mls @ 80 mls/hr 09/17/23 06:00 09/17/23 08:29 IV 10/14/23 23:59 80 mls/hr INFUSION SUKH Administration Cefazolin Sodium/Dextrose 2 gm in 50 mls @ 100 mls/hr 09/17/23 06:00 Ancef Duplex IVPB 10/14/23 23:59 PREOP SUKH IV Miscellaneous Supplies 1 each 09/17/23 06:00 Iv Access IV 10/14/23 23:59 DIRECTED SUKH Sodium Chloride 0 ml 09/17/23 06:00 Normal Saline Flush 10 Ml Syr IV 10/14/23 23:59 PRN PRN Sodium Chloride 0 ml 09/17/23 06:00 Normal Saline 10 Ml Vial IJ 10/14/23 23:59 DIRECTED PRN Sterile Water 0 ml 09/17/23 06:00 Water,Injection,Sterile 10 Ml Vial IJ 10/14/23 23:59 DIRECTED PRN [facility] Active Problems Active Problems: Problem Status Onset Code Abdominal pain Acute R10.9 Disorder of skin Acute L98.9 Localized skin eruption Acute R21 Essential hypertension Acute I10 Nicotine dependence Acute F17.200 History of colon polyps Acute Z86.010 Pain of right hip joint Acute M25.551 Nodule of skin of toe Acute R22.40 Periapical abscess Acute K04.7 Blood chemistry abnormality Acute R79.9 History of urinary stone Acute Z87.442 Otitis externa Acute H60.90 Prediabetes Acute R73.03 Decreased renal function Acute N28.9 Mass of urinary bladder Acute N32.89 Sensorineural hearing loss (SNHL) of both ears Acute H90.3 Ear itching Acute L29.9 Calculus of both kidneys Acute N20.0 Right ureteral stone Acute N20.1 Medical History Medical History HTN (hypertension) Hypertriglyceridemia Glaucoma Hx of smoking Hx of adenomatous colonic polyps Lung nodule Chronic diarrhea History of renal calculi Skin lesion Hip pain, right Occult blood in stools Dermatitis of ear canal Localized swelling of right lower leg Hyperpigmentation Skin rash Dental abscess Type 2 diabetes mellitus Otitis externa of both ears Surgical History Surgical History Hx of appendectomy D&C with Hysteroscopy (~2002) Bx Benign Cholecystectomy (~1977) Tobacco Smoking/Tobacco Use Status: Current every day Tobacco Type: cigarettes Alcohol Alcohol Intake: never Substance Use Substance use: Never Substance use type: does not use Vital Signs and Lab Results Vital Signs Most Recent Vital Signs in EMR: Most Recent Vital Signs Temp Pulse Resp BP Pulse Ox 36.2 C L 81 20 181/69 H 97 09/17/23 08:25 09/17/23 08:25 09/17/23 08:25 09/17/23 08:25 09/17/23 08:25 Point of Care Results Point of Care Results: Finger Stick Blood Glucose 136 09/17/23 08:07 Lab Results Blood Type / Crossmatch: No Data to Display Complete Blood Count: White Blood Count 13.84 10^3/uL (4.4-10.8) H 08/26/23 18:50 Red Blood Count 4.47 10^6/uL (3.93-5.22) 08/26/23 18:50 Hemoglobin 14.2 g/dL (11.2-15.7) 08/26/23 18:50 Hematocrit 43.6 % (36.0-46.0) 08/26/23 18:50 Platelet Count 290 10^3/uL (130-400) 08/26/23 18:50 Complete Metabolic Panel: Sodium 139 mmol/L (136-145) 08/26/23 18:50 Potassium 4.5 mmol/L (3.5-5.1) 08/26/23 18:50 Chloride 105 mmol/L (98-107) 08/26/23 18:50 Carbon Dioxide 21.2 mmol/L (21.0-32.0) 08/26/23 18:50 BUN 24 mg/dL (7-18) H 08/26/23 18:50 Creatinine 1.9 mg/dL (0.55-1.02) H 08/26/23 18:50 Est GFR (CKD-EPI 2020) 27.54 (mL/min/1.73m2) 08/26/23 18:50 Calcium 11.1 mg/dL (8.5-10.1) H 08/26/23 18:50 Albumin 3.9 g/dL (3.4-5.0) 08/26/23 18:50 Glucose 131 mg/dL (74-106) H 08/26/23 18:50 Liver Function Panel: Alanine Aminotransferase (ALT/SGPT) 27 U/L (14-59) 08/26/23 18: 50 Aspartate Amino Transf (AST/SGOT) 13 U/L (15-37) L 08/26/23 18: 50 Coagulation Panel: No Data to Display Cardiac Panel: No Data to Display Arterial Blood Gas: No Data to Display Venous Blood Gas: No Data to Display Pancreas Panel: Lipase 41 U/L (16-77) 08/26/23 18:50 Thyroid Panel: No Data to Display Infectious Disease: Coronavirus (COVID-19)(PCR) Negative (Negative) 08/26/23 18:50 Coronavirus 2019 Source Nasopharynx 08/26/23 18:50 Influenza Virus Type A (PCR) Negative (Negative) 08/26/23 18:5 0 Influenza Virus Type B (PCR) Negative (Negative) 08/26/23 18:5 0 Respiratory Syncytial Virus (PCR) Negative (Negative) 08/26/23 18:50 Blood Cultures: No Data to Display Toxicology Panel: No Data to Display Anesthesia Assessment and Plan Anesthesia History Personal History: No History of Anesthesia Complications Family History: No Family History of Anesthesia Complications Exercise Tolerance Exercise Tolerance: Metabolic Equivalents>4 Pertinent Negatives Pertinent Negatives: No Symptoms of GERD, No Major Cardiovascular Symptoms or Complaints, No Major Pulmonary Symptoms or Complaints and No History of CVA/TIA Cardiac & Pulmonary Exam Cardiac Exam: Normal S1/S2 Heart Sounds Pulmonary Exam: Clear Bilateral Breath Sounds Implantable Cardiac Device Does patient have a Pacemaker or an ICD?: No Airway Exam Known Difficult Airway: No Mallampati Class: 2 Mouth Opening: Normal (> 3cm) Thyromental Distance: Less than 3 cm Neck Range of Motion: Full ROM Neck Circumference: Normal Teeth Condition: Normal Dentition ASA Classification ASA Score: ASA 2 Emergency Case?: No NPO Status NPO Status: NPO Clears >2 hours, Solids >8 hours Anesthesia Plan Resuscitation Status: Full Code Anesthesia Technique: General Anesthesia Airway Planned: LMA Monitors Used: Standard Monitors
[2023-09-17 08:34] VITALS: BMI 33.2
--- NOTE | 2023-09-17 10:50 | W.PM.HP.N ---
Date of service: 09/17/23 Time of Service: 10:50 Assessment and Plan Assessment and plan (1) Mass of urinary bladder: Status: Acute Assessment and plan: We will plan to do cystoscopy for evaluation. We will be prepared to do TURBT if a mass is identified. History of Present Illness History of Present Illness Chief Complaint: Bladder mass Narrative: This is a 73-year-old woman who has a history of kidney stones. she had undergone ureteroscopy in 2019. She was found to have an elevated serum creatinine. She was evaluated with a renal US which showed a possible mass at the bladder neck. The findings were confirmed on CT scan She has no gross or microscopic hematuria. She has no change in her continence. Review of Systems Narrative: No fevers or chills Decreased hearing acuity. No vision change or dysphasia No diabetes or thyroid dysfunction No shortness of breath, cough or hemoptysis No chest pain or palpitations No nausea, vomiting, hepatitis, ulcers, jaundice No seizures, strokes or peripheral neuropathy No bleeding disorders or anemia No gout PFSH All Active Problems Abdominal pain (Acute) Disorder of skin (Acute) Localized skin eruption (Acute) Essential hypertension (Acute) Nicotine dependence (Acute) History of colon polyps (Acute) Pain of right hip joint (Acute) Nodule of skin of toe (Acute) Periapical abscess (Acute) Blood chemistry abnormality (Acute) History of urinary stone (Acute) Otitis externa (Acute) Prediabetes (Acute) Decreased renal function (Acute) Mass of urinary bladder (Acute) Sensorineural hearing loss (SNHL) of both ears (Acute) Ear itching (Acute) Calculus of both kidneys (Acute) Right ureteral stone (Acute) Medical History HTN (hypertension) Hypertriglyceridemia Glaucoma Hx of smoking Hx of adenomatous colonic polyps Lung nodule Chronic diarrhea History of renal calculi Skin lesion Hip pain, right Occult blood in stools Dermatitis of ear canal Localized swelling of right lower leg Hyperpigmentation Skin rash Dental abscess Type 2 diabetes mellitus Otitis externa of both ears Surgical History Hx of appendectomy D&C with Hysteroscopy (~2002) Bx Benign Cholecystectomy (~1977) Family History Mother Thyroid disease Father Brain cancer Lung cancer Grandmother Breast cancer PGM Daughter Thyroid disease Social History Smoking/Tobacco Use Status: Current every day Tobacco Type: cigarettes Smoking risk assessment performed?: Yes Alcohol Intake: never Drug use: Never Substance use type: does not use Housing: house Do you feel safe at home: Yes Do you feel safe in your relationship?: Yes Meds Allergies and Home Medications Allergies Allergy/AdvReac Type Severity Reaction Status Date / Time metformin AdvReac Skin Rash Verified 09/17/23 08:23 Home Medications ?Medication ?Instructions ?Recorded ?Confirmed ?Type multivitamin (Multi-Day tablet) 1 ea PO DAILY 02/24/16 09/17/23 History atenolol 25 mg tablet 25 mg PO DAILY 09/09/19 09/17/23 History cholecalciferol (vitamin D3) 50 50 mcg PO DAILY 09/09/19 09/17/23 History mcg (2,000 unit) capsule latanoprost 0.005 % eye drops 1 drp ophthalmic (eye) QPM 06/19/23 09/17/23 History lisinopril 20 mg tablet 20 mg PO DAILY 06/19/23 09/17/23 History mometasone 0.1 % topical ointment 1 applic topical DAILY 06/19/23 09/17/23 History omega-3 fatty acids 1,000 mg 1,000 mg PO DAILY 06/19/23 09/17/23 History capsule timolol maleate 0.5 % eye drops 1 drp ophthalmic (eye) DAILY 06/19/23 09/17/23 History Exam Const General: cooperative and comfortable Neck Neck: supple Resp Effort & Inspection: normal respiratory effort Auscultation: clear to auscultation bilaterally Cardio Rate: regular rate Rhythm: regular rhythm GI Palpation: soft and no masses Neuro General: patient alert, patient awake and patient oriented x3 Results Last Vital Signs Temp 36.2 C L 09/17/23 08:25 Pulse 81 09/17/23 08:25 Resp 20 09/17/23 08:25 BP 181/69 H 09/17/23 08:25 Pulse Ox 97 09/17/23 08:25 Time Spent Time spent with Patient: <40 minutes Time was spent: other
[2023-09-17] MEDS: ceFAZolin 2 GM/50 ML BAG IVPB (11:04)
--- NOTE | 2023-09-17 11:26 | BLADDER_PTH ---
PATIENT: Shereen Medley LOC: [facility] U#:[id number] AGE/SX: 73/F ROOM: RE09/17/[address]: Michael Castillo MD : 1950 BED: DIS: 09/17/2023 SPEC #: [id number] RECD: 09/17/23 13:01 STATUS: DOUGLAS REAnnelise #: [id number] MARLENY: 09/17/23 11:[address]: Michael Castillo DEPT: Surgical Specimen RECD BY: Karina Savage ENTERED: 09/17/23 13:02 SP TYPE: Bladder OTHR DR: Alona Keller Tissues: 1 - BLADDER BIOPSY Procedures: GROSS AND MICRO LEVEL 4 Comments: [id number]
--- NOTE | 2023-09-17 11:33 | W.PM.DSUDISC ---
Date of service: 09/17/23 Time of Service: 11:33 Discharge Plan Disposition Patient Disposition: Home Discharge Details Reason For Visit: cystoscopy Attending Provider: Michael Castillo Primary Care Provider: Alona Keller Home Meds and New Rx's Prescriptions: No Action cholecalciferol (vitamin D3) 50 mcg (2,000 unit) capsule 50 mcg PO DAILY atenolol 25 mg tablet 25 mg PO DAILY latanoprost 0.005 % drops 1 drp ophthalmic (eye) QPM lisinopril 20 mg tablet 20 mg PO DAILY mometasone 0.1 % ointment 1 applic topical DAILY omega-3 fatty acids 1,000 mg capsule 1,000 mg PO DAILY timolol maleate 0.5 % drops 1 drp ophthalmic (eye) DAILY multivitamin [Multi-Day] 1 EACH tablet 1 ea PO DAILY Discharge Instructions Additional Instructions: followup 2 weeks for pathology results Discharge Orders Discharge Orders: Discharge Order (Routine); Ordered 09/17/23 Ordered By: Michael Castillo DS: Diagnosis Discharge Diagnosis (1) Mass of urinary bladder: Status: Acute
[2023-09-17] MEDS: Lidocaine 2% Jelly 11 ML SYR (11:35)
[2023-09-17 11:36] VITALS: BP 127/52; PULSE 82; RESP 20; TEMP 36.1; O2SAT 95
--- NOTE | 2023-09-17 11:36 | ROE_ITS ---
Date of service: 09/17/23 Time of Service: 11:36 Operative Note Operative Note DATE OF PROCEDURE: 09/17/23 PRE-OP DIAGNOSIS: Bladder mass PROCEDURE: cystoscopy, bladder biopsy with fulguration SURGEON: Michael Castillo ANESTHESIA TYPE: Local By Surgeon and General:No Airway Refer to Anesthesia Record ESTIMATED BLOOD LOSS: 5 PATHOLOGY: other (bladder neck biopsy) COMPLICATIONS: None Patient was transported to: same day Patient's condition: stable Implants: none Indications: This is a 73-year-old woman who has a history of an elevated serum creatinine. As part of her evaluation, a renal ultrasound was obtained. On the bladder images, there appeared to be a mass at the base of the bladder. She was then evaluated with a CT scan which also raises suspicions for a bladder mass just at the bladder neck. She presents for cystoscopy for evaluation. Findings: No mucosal abnormalities Procedure Description: The patient was given preoperative antibiotics and brought to the operating room on 09/17/2023. After successful induction of general anesthesia without intubation, she was placed in the dorsal lithotomy position. Her genitalia was prepped and draped. 2% Xylocaine jelly was instilled into the urethra to act as a local anesthetic. A 22 Bulgarian rigid cystoscope was passed through the urethra into the bladder. The bladder was inspected using both the 30 and a 70 degree lens. Both ureteral orifices appeared normal with no blood coming from either side. The remainder the bladder was smooth-walled with no papillary or nodular lesions. Just at the bladder neck, there was some pebbly appearing tissue especially down toward the trigone. I biopsied the area using a cold cup biopsy forceps. The biopsy was sent to pathology for permanent section. The biopsy site was then cauterized using bipolar cautery. We avoided both the ureteral orifices as well as the sphincter region on her biopsy. The bladder was emptied and the cystoscope was withdrawn. The patient tolerated this procedure well with no complications.
[2023-09-17] MEDS: Phenazopyridine 200 MG TAB PO (12:00)
[2023-09-17 12:12] VITALS: BP 142/60; PULSE 72; RESP 16; TEMP 36.4; O2SAT 94
--- NOTE | 2023-09-17 12:25 | W.ANESPOSTOP ---
Postoperative Evaluation Date, Time and Location Date Performed: 09/17/23 Time Performed: 12:25 Patient Location: Day Surgery Unit Vital Signs Most Recent Imported Vital Signs: Most Recent Vital Signs Temp Pulse Resp BP Pulse Ox 36.4 C L 72 16 142/60 H 94 09/17/23 12:12 09/17/23 12:12 09/17/23 12:12 09/17/23 12:12 09/17/23 12:12 Pain Score Most Recent Pain Score: Most Recent Pain Score Pain Level 0 09/17/23 12:12 Assessment Mental Status: Awake (Alert & Oriented to Patient Baseline) Airway and Respiratory Function: Patent airway with normal (patient baseline) respiratory exam Cardiovascular Function: Hemodynamically Stable Hydration Status: Adequately Hydrated Nausea & Vomiting: No Nausea or Vomiting Pain: Pt. Denies Any Pain Peripheral Nerve Block: Patient did not receive a nerve block
== END 2023-09-17 12:37 | disposition home or self-care (01) ==
PROVIDERS: PCP Nurse Practitioner Family; Visit Provider Urology
PROC: 0TBB8ZZ Excision of Bladder, Via Natural or Artificial Opening Endoscopic (ICD-10-PCS; CPT 52204; principal; 2023-09-17 10:00)
DX: N32.89 Other specified disorders of bladder (principal); I10 Essential (primary) hypertension; F17.210 Nicotine dependence, cigarettes, uncomplicated; R73.03 Prediabetes
CPT/HCPCS: 52204; 88305; J0690; J1100; J1885; J2001; J2405; J2704

== ENCOUNTER → 2023-10-09 10:46 | Outpatient (BNVA) | payer MEDICARE, SELFPAY | PROVIDERS: PCP Nurse Practitioner Family; Referring Provider Nurse Practitioner Family; Visit Provider Urology | DX: N32.89 Other specified disorders of bladder (principal) | CPT/HCPCS: 99213 ==

== ENCOUNTER 2023-11-16 00:09 | Outpatient (CLI) | payer MEDICARE, SELFPAY ==
--- NOTE | 2023-11-16 13:13 | DI.CTLCSR_ITS ---
Exam(s) CT CHEST LUNG CANCER SCREEN EXAM: CT CHEST LUNG CANCER SCREEN CLINICAL HISTORY: SCREENING FOR LUNG CANCER, CURRENT SMOKER, F17.210 TECHNIQUE: Imaging Protocol: Axial computed tomography images with coronal and sagittal reformatted images were created and reviewed. Low dose screening protocol. COMPARISON: CT CT CHEST LUNG CANCER SCREEN from 11/14/2022 FINDINGS: Tracheobronchial tree: No bronchiectasis or mucus plugging. Mediastinum and Violeta: No dominant adenopathy or fluid collection. Pulmonary parenchyma: No consolidation or dominant measurable mass. Mild emphysematous changes. Lung Nodules: Stable 5 millimeter nodule right upper lobe. Stable perifissural nodule in the right m iddle lobe. No new nodules. Pleura: No effusion. No pneumothorax. Heart: The heart is not dilated. Mild coronary artery calcifications are seen. Aorta: Thoracic aorta non-dilated. Mild atherosclerotic changes. Upper abdomen: Status post cholecystectomy Bones: Degenerative changes of the thoracic spine with flowing osteophytes. Soft Tissues: Unremarkable. IMPRESSION: No suspicious pulmonary nodules. Lung RADS Cat 2 - Benign Appearance / Behavior: Nodules with a very low likelihood of becoming a clin ically active cancer due to size or lack of growth Lung-RADS 1.0 CATEGORIES: Category 0 - Prior chest CT exam(s) being located for comparison. Category 1 - Annual screening in 12 months. No nodules or definitely benign nodules. Category 2 - Annual screening in 12 months. Benign appearance. Nodules with low likelihood of becomin g active cancer. Category 3 - 6-month follow-up. Probably benign. Short-term follow-up suggested. Nodules with low lik elihood of becoming active cancer. Category 4A - 3-month follow-up and CT/PET if >8 mm in size. Suspicious finding. Findings which requi re additional testing. Category 4B - Findings which require additional testing and tissue sampling. Category 4X - Category 3 or 4 nodules with additional features or imaging findings that increases the suspicion of malignancy. Modifier S- Potentially clinically significant findings (non lung cancer) RADIATION DOSE DELIVERED: !Error Total DLP DATA REPOSITORY: All CT scans at this facility are submitted to the National Radiology Data Registry (NRDR) Dose Index Registry (DIR) with the [employer] ([employer]). RADIATION OPTIMIZATION: All CT scans at this facility use at least one of these dose optimization te chniques: automated exposure control; mA and/or kV adjustment per patient size (includes targeted exa ms where dose is matched to clinical indication); or iterative reconstruction.
== END 2023-11-16 00:29 ==
LOC: DI 00:09
PROVIDERS: PCP Nurse Practitioner Family; Visit Provider Nurse Practitioner Family
DX: F17.210 Nicotine dependence, cigarettes, uncomplicated (principal); Z12.2 Encounter for screening for malignant neoplasm of respiratory organs
CPT/HCPCS: 71271

== ENCOUNTER 2024-08-18 17:21 | Outpatient (REF) | payer MEDICARE, SELFPAY ==
[2024-08-18 16:45] LABS: Bilirubin Negative (Negative); Blood Negative (Negative); Clarity Clear (Clear); Glucose Negative (Negative); Ketones Negative (Negative); Leukocyte Esterase Negative (Negative); Nitrite Negative (Negative); Specific Gravity <= 1.005 (1.005-1.025); Urobilinogen 0.2 mg/dL (Up to 0.2); pH 5.5 (5-8)
[2024-08-18 16:48] LABS: Anion Gap 8.4 mmol/L (3-11); BUN 28 mg/dL (7-18); CO2 26.6 mmol/L (21.0-32.0); CREATININE 1.6 mg/dL (0.55-1.02); Calcium 10.6 mg/dL (8.5-10.1); Chloride 103 mmol/L (98-107); Estimated GFR 33.63 (mL/min/1.73m2); Glucose 101 mg/dL (74-106); Potassium 4.8 mmol/L (3.5-5.1); Sodium 138 mmol/L (136-145)
[2024-08-18 17:17] LABS: Hemoglobin A1C 6.1 % (<5.7)
== END 2024-08-18 17:22 | disposition home or self-care (01) ==
LOC: NCHCN 17:21
PROVIDERS: PCP Nurse Practitioner Family; Visit Provider Nurse Practitioner Family
DX: R73.03 Prediabetes (principal); N32.89 Other specified disorders of bladder; I10 Essential (primary) hypertension
CPT/HCPCS: 80048; 81003; 83036

== ENCOUNTER 2024-11-19 01:45 | Outpatient (CLI) | payer MEDICARE, SELFPAY ==
--- NOTE | 2024-11-19 08:32 | DI.CTLCSR_ITS ---
Exam(s) CT CHEST LUNG CANCER SCREEN EXAM: CT CHEST LUNG CANCER SCREEN CLINICAL HISTORY: NICOTINE DEPENDENCE F17.210 SCREENING LUNG CANCER TECHNIQUE: Imaging Protocol: Axial computed tomography images with coronal and sagittal reformatted images were created and reviewed. Lung Computer Aided Detection (CAD) was utilized. COMPARISON: CT CT CHEST LUNG CANCER SCREEN from 10/28/[address] CHEST LUNG CANCER SCREEN from 11/14/[address] CHEST LUNG CANCER SCREEN from 11/16/2023 FINDINGS: Tracheobronchial tree: Patent where visualized. No bronchiectasis. Pulmonary parenchyma: No consolidation or dominant measurable mass. No architectural distortion. There is a calcified granuloma in the right lower lobe. Lung Nodules: There is a stable nodule adjacent to the right minor fissure. There is a stable 5 mm right upper lobe pulmonary nodule posteriorly. No new pulmonary nodules are present. Mediastinum and Violeta: No dominant adenopathy or fluid collection. The esophagus is unremarkable. Thyroid gland: Unremarkable. Lymph nodes: Unremarkable. Pleura: No effusion or pneumothorax. Heart: The heart is not dilated. There is mild single-vessel coronary artery calcification. No pericardial effusion. Aorta: Thoracic aorta non-dilated.Atherosclerotic calcification is present. Upper abdomen: The patient is status post cholecystectomy. Soft Tissues: Unremarkable. Bones: Within normal limits. IMPRESSION: Stable pulmonary nodules. No new pulmonary nodules are present. Lung RADS Cat 2 - Benign Appearance / Behavior: Nodules with a very low likelihood of becoming a clinically active cancer due to size or lack of growth Lung-RADS 1.0 CATEGORIES: Category 0 - Prior chest CT exam(s) being located for comparison. Category 1 - Annual screening in 12 months. No nodules or definitely benign nodules. Category 2 - Annual screening in 12 months. Benign appearance. Nodules with low likelihood of becoming active cancer. Category 3 - 6-month follow-up. Probably benign. Short-term follow-up suggested. Nodules with low likelihood of becoming active cancer. Category 4A - 3-month follow-up and CT/PET if >8 mm in size. Suspicious finding. Findings which require additional testing. Category 4B - Findings which require additional testing and tissue sampling. Suspicious finding. Category 4X - Category 3 or 4 nodules with additional features or imaging findings that increases the suspicion of malignancy. Modifier S- Potentially clinically significant finding. (Non lung cancer) RADIATION DOSE DELIVERED: 32.25mGy.cm Total DLP 32.25mGy.cmTotal DLP DATA REPOSITORY: All CT scans at this facility are submitted to the National Radiology Data Registry (NRDR) Dose Index Registry (DIR) with the [employer] (ACR). RADIATION OPTIMIZATION: All CT scans at this facility use at least one of these dose optimization techniques: automated exposure control; mA and/or kV adjustment per patient size (includes targeted exams where dose is matched to clinical indication); or iterative reconstruction.
== END 2024-11-19 02:05 ==
PROVIDERS: PCP Nurse Practitioner Family; Visit Provider Nurse Practitioner Family
DX: Z12.2 Encounter for screening for malignant neoplasm of respiratory organs (principal); F17.210 Nicotine dependence, cigarettes, uncomplicated
CPT/HCPCS: 71271